=== PATIENT | female | born 1980 | race Caucasian/White ===

== ENCOUNTER → 2018-09-29 | Outpatient (CLI) | payer OTHER, SELFPAY ==
[2018-10-02 13:09] LABS: HPV Reflexed? NOT INDICATED
== END | disposition home or self-care (01) ==
PROVIDERS: Visit Provider Obstetrics & Gynecology
DX: Z12.4 Encounter for screening for malignant neoplasm of cervix (principal)
CPT/HCPCS: 88175; G0145

== ENCOUNTER → 2018-11-23 | Outpatient (CLI) | payer OTHER, SELFPAY ==
--- NOTE | 2018-11-23 11:03 | RAD_ITS ---
STUDY: X-RAY - RIGHT FOOT CLINICAL: Female, 38 years old. Bilateral heel pain TECHNIQUE: 3 view(s) of the foot. COMPARISON: None. FINDINGS: There is a plantar calcaneal spur. Normal visualized subtalar, talonavicular, calcaneocuboid, tarsal and tarsometatarsal articulations. There is mild degenerative change within the tarsometatarsal joints. Normal metatarsi. Normal metatarsophalangeal joint of the great toe. Normal tibial and fibular sesamoid bones. Normal interphalangeal joint of the great toe. Normal phalanges of the great toe. Normal second through fifth metatarsophalangeal joints. Normal interphalangeal joints and phalanges of the lesser toes. The soft tissue structures are unremarkable. RAD/Foot min 3 Views IMPRESSION: Plantar spur. No visualized evidence of an acute fracture. Electronically Signed: Ania Valadez MD at 16:46 EDT Tel , Service support ,
--- NOTE | 2018-11-23 11:06 | RAD_ITS ---
STUDY: X-RAY - LEFT FOOT CLINICAL: Female, 38 years old. Bilateral heel pain TECHNIQUE: 3 view(s) of the foot. COMPARISON: None. FINDINGS: There is a plantar spur. Normal visualized subtalar, talonavicular, calcaneocuboid, tarsal and tarsometatarsal articulations. Normal metatarsi. Normal metatarsophalangeal joint of the great toe. Normal tibial and fibular sesamoid bones. Normal interphalangeal joint of the great toe. Normal phalanges of the great toe. Normal second through fifth metatarsophalangeal joints. Normal interphalangeal joints and phalanges of the lesser toes. The soft tissue structures are unremarkable. RAD/Foot min 3 Views IMPRESSION: Plantar spur. No visualized acute fracture. Electronically Signed: Ania Valadez MD at 16:48 EDT Tel , Service support ,
== END | disposition home or self-care (01) ==
LOC: HPRAD 10:58
PROVIDERS: PCP Nurse Practitioner; Referring Provider Nurse Practitioner; Visit Provider Nurse Practitioner
DX: M79.671 Pain in right foot (principal); M79.672 Pain in left foot
CPT/HCPCS: 73630

== ENCOUNTER → 2019-10-28 | Outpatient (CLI) | payer OTHER, SELFPAY ==
--- NOTE | 2019-10-28 15:58 | BI_ITS ---
MAMMOGRAPHY - BILATERAL SCREENING REASON FOR EXAM: Female, 39 years old. Routine annual screening examination. PERTINENT HISTORY: Aunt with breast cancer. TECHNIQUE: Digital bilateral breast lisa (3D mammographic acquisition) in the CC and MLO projections. 2-D mediolateral oblique (MLO) and craniocaudad (CC) views of both breasts were obtained. CAD: Full Field Digital Mammography with Computer Added Detection was performed. COMPARISON: None. Baseline examination. FINDINGS: Breast Composition: The breasts are heterogeneously dense, which may obscure small masses. There are no dominant masses or suspicious calcifications. There is a 3.9 mm x 5 mm well-defined nodule in the upper lateral region of the left breast most likely representing a small lymph node. There is also evidence of a benign-appearing bilateral axillary lymph nodes. No other significant abnormalities are identified. BI/SCREEN MAMM (CAD) W/LISA BILAT IMPRESSION: 3.9 mm x 5 mm well-defined nodule in the upper outer quadrant of the left breast as described. Correlation with ultrasound is recommended. ASSESSMENT CATEGORY: BIRADS Category 0: Incomplete. Need additional imaging evaluation. A letter regarding these results will be sent to the patient by the facility within 30 days. Approximately 10% of breast cancers are not detected by mammography. A normal mammogram should not delay biopsy of a clinically suspicious abnormality. [id number] Electronically Signed: Shiva Pereyra, at 8:07 EDT , Service support ,
== END | disposition home or self-care (01) ==
LOC: OPBI 15:56
PROVIDERS: PCP Nurse Practitioner; Referring Provider Obstetrics & Gynecology; Visit Provider Obstetrics & Gynecology
DX: Z12.31 Encounter for screening mammogram for malignant neoplasm of breast (principal)
CPT/HCPCS: 77063; 77067

== ENCOUNTER → 2019-11-04 | Outpatient (CLI) | payer OTHER, SELFPAY ==
--- NOTE | 2019-11-04 09:33 | US_ITS ---
STUDY: ULTRASOUND BREAST - LEFT REASON FOR EXAM: Female, 39 years old. Abnormal screening mammogram. TECHNIQUE: Axial and longitudinal images of the LEFT breast were performed with a high resolution ultrasound transducer. # OF IMAGES: 35 COMPARISON: Comparison is made with prior mammogram dated October 28, 2019. FINDINGS: LEFT Breast: There is a 1.9 cm x 0.7 cm x 0 0.6 mL well-defined hypoechoic nodule with a central echogenic focus suggestive of a benign-appearing lymph node. This is at the 2:00 position of the breast at 8 cm from nipple. US/Breast Limited Unilateral IMPRESSION: The mammographic abnormality was possibly benign appearing lymph node at the 2:00 position of the breast at 8 cm from nipple. This measures 1.9 cm x 0.7 cm x 0.6 cm. ASSESSMENT CATEGORY: BIRADS Category 2: Benign. A letter regarding these results will be sent to the patient by the facility within 30 days. Electronically Signed: Shiva Pereyra, at 12:05 EDT , Service support ,
== END | disposition home or self-care (01) ==
LOC: OPUS 09:32
PROVIDERS: PCP Nurse Practitioner; Referring Provider Obstetrics & Gynecology; Visit Provider Obstetrics & Gynecology
DX: R92.8 Other abnormal and inconclusive findings on diagnostic imaging of breast (principal)
CPT/HCPCS: 76642

== ENCOUNTER → 2020-10-25 | Outpatient (CLI) | payer OTHER, SELFPAY ==
[2020-11-01 20:00] LABS: HPV Reflexed? NOT INDICATED
== END | disposition home or self-care (01) ==
LOC: LABSPEC 13:43
PROVIDERS: PCP Nurse Practitioner; Visit Provider Obstetrics & Gynecology
DX: Z12.4 Encounter for screening for malignant neoplasm of cervix (principal)
CPT/HCPCS: 88175; G0145

== ENCOUNTER → 2020-11-23 11:51 | Outpatient (CLI) | payer OTHER, SELFPAY ==
--- NOTE | 2020-11-23 11:53 | BI_ITS ---
MAMMOGRAPHY - BILATERAL SCREENING 3-D TOMOSYNTHESIS REASON FOR EXAM: Female, 40 years old. SCREENING PERTINENT HISTORY: No significant family history. TECHNIQUE: 2-D mammograms and 3-D Tomosynthesis of the breast (s) were performed. CAD was performed. COMPARISON: 10/28/2019 FINDINGS: The breast composition is of heterogeneous fibroglandular tissue No dense spiculated masses or suspicious microcalcifications are identified. No architectural distortion is identified. There is no skin thickening or nipple retraction. There are benign-appearing small lymph nodes in the axillary areas bilaterally. There has been no significant change since the prior study since 10/28/2019 BI/SCRN MAMM (CAD)W/LISA BILAT IMPRESSION: No mammographic signs of malignancy. Routine yearly mammograms recommended. ASSESSMENT CATEGORY: BIRADS Category 1: Negative. A letter regarding these results will be sent to the patient by the facility within 30 days. FOLLOW UP RECOMMENDATION: Yearly follow up mammogram recommended. (A) Approximately 10% of breast cancers are not detected by mammography. A normal mammogram should not delay biopsy of a clinically suspicious abnormality. Electronically Signed: Carlotta Funk, at 12:45 EDT Tel , Service support ,
== END ==
PROVIDERS: PCP Nurse Practitioner; Referring Provider Obstetrics & Gynecology; Visit Provider Obstetrics & Gynecology
DX: Z12.31 Encounter for screening mammogram for malignant neoplasm of breast (principal)
CPT/HCPCS: 77063; 77067

== ENCOUNTER → 2021-11-27 | Outpatient (CLI) | payer OTHER, SELFPAY ==
--- NOTE | 2021-11-27 10:11 | BI_ITS ---
MAMMOGRAPHY - BILATERAL SCREENING REASON FOR EXAM: Female, 41 years old. Routine annual screening examination. PERTINENT HISTORY: Aunt with breast cancer. TECHNIQUE: Digital bilateral breast lisa (3D mammographic acquisition) in the CC and MLO projections. 2-D mediolateral oblique (MLO) and craniocaudad (CC) views of both breasts were obtained. CAD: Full Field Digital Mammography with Computer Added Detection was performed. COMPARISON: Comparison is made with prior study dated 11/23/2020 and 10/28/2019. FINDINGS: Breast Composition: The breasts are heterogeneously dense, which may obscure small masses. There are no dominant masses or suspicious calcifications. Stable 3.9 mm x 5 mm well-defined nodule in the upper-outer aspect of the left breast most likely represents a small intramammary lymph node. Stable small benign-appearing bilateral axillary lymph nodes. No other significant abnormalities are identified. BI/SCRN MAMM (CAD)W/LISA BILAT IMPRESSION: Stable bilateral screening mammogram. Yearly follow-up mammogram recommended. (A) ASSESSMENT CATEGORY: BIRADS Category 2: Benign. A letter regarding these results will be sent to the patient by the facility within 30 days. Approximately 10% of breast cancers are not detected by mammography. A normal mammogram should not delay biopsy of a clinically suspicious abnormality. [id number] Electronically Signed: Shiva Pereyra MD at 11:04 EDT ,
== END | disposition home or self-care (01) ==
LOC: OPBI 10:09
PROVIDERS: PCP Nurse Practitioner; Visit Provider Obstetrics & Gynecology
DX: Z12.31 Encounter for screening mammogram for malignant neoplasm of breast (principal)
CPT/HCPCS: 77063; 77067

== ENCOUNTER 2021-11-29 20:51 | Emergency (ER) | payer OTHER, SELFPAY ==
[2021-11-29 20:52] VITALS: BP 138/89; PULSE 73; RESP 16; TEMP 36.6; O2SAT 100; BMI 29.7
--- NOTE | 2021-11-29 21:33 | RAD_ITS ---
STUDY: RIGHT TIBIA AND FIBULA X-RAY SERIES OF 2206 HOURS ON 11/29/2021 REASON FOR EXAM: 41-year-old female with pain in the right tibia and fibular region. TECHNIQUE: 3 view(s) of the tibia and fibula were obtained. COMPARISON: None. FINDINGS: There is no evidence of fractures or dislocations of the adjacent joints. There is no evidence of arthritic or degenerative changes of the adjacent joints. No osseous lytic, sclerotic, or mass lesions are evident. The surrounding soft tissues are normal. RAD/Tibia & Fibula 2 Views IMPRESSION: 1. Normal examination of the right tibia and fibula. 2. No fractures or dislocations. 3. No osseous lytic, sclerotic or mass lesions. 4. Normal-appearing adjacent right knee and right ankle joints. 5. Normal surrounding soft tissues. Electronically Signed: Collin Guerra MD at 22:29 EDT ,
--- NOTE | 2021-11-29 21:33 | EDS_ITS ---
HPI History of Present Illness Chief Complaint: Lower Extremity Injury Narrative Narrative: 41-year-old female presenting with pain in the right leg. She states he was kicked by her cow just below the level of the knee on the lateral aspect of the right leg. Patient states he is unable to ambulate secondary pain. She did not take anything for pain prior to arrival. Denies numbness or tingling. She is a superficial abrasion overlying the right lateral leg. She states that the pain radiates up into her knee. PFSH PFSH Home Medications norelgestromin 150 mcg-e.estradiol 35 mcg/24 hr weekly transderm patch (Xulane) 1 patch transdermal UD 11/29/21 [History Last Taken Unknown] Allergy/AdvReac Type Severity Reaction Status Date / Time No Known Allergies Allergy Verified 11/29/21 20:53 Social History Smoking Status: Never smoker ROS ROS ED Constitutional Constitutional ED: Denies chills or fever(s) Eyes Eyes: Denies change in vision or diplopia ENT ENT ED: Denies rhinorrhea or sore throat Cardiovascular Cardiovascular: Denies chest pain or palpitations Respiratory/Chest Respiratory/Chest: Denies cough or dyspnea Gastrointestinal Gastrointestinal: Denies abdominal pain or constipation Genitourinary Genitourinary ED: Denies dysuria Musculoskeletal Musculoskeletal: Reports other Details: Right leg pain ; Denies arthralgias or back pain Integumentary Reports Abrasions; Denies abscess Neurologic Neurologic: Denies headache(s) EXAM Physical Exam Const Vital Signs: 11/29/21 20:52 Temperature 97.8 F Temperature Source Temporal Pulse Rate 73 Respiratory Rate 16 Blood Pressure 138/89 H Blood Pressure Mean 105 Pulse Ox 100 Oxygen Delivery Method Room Air Positive well nourished General Appearance ED: NAD HEENT Reports moist mucous membranes normocephalic and atraumatic Resp normal respiratory effort Cardio regular rate and regular rhythm Extremity Extremity Narrative: Tenderness to palpation overlying the area of the fibular head. There is a superficial abrasion overlying this. compartments of the calf are soft. Right knee extensor mechanism intact. No knee effusion or ligamentous laxity. Sensation intact below the level of the injury. No obvious deformity of the leg. General Extremety ED: Yes weight-bearing difficulty General Extremity: weight-bearing difficulty Neuro oriented x3 and CN's II-XII intact bilaterally Sensorium / Orientation: alert Psych mental status grossly normal MDM MDM MDM Narrative Medical decision making narrative: Patient declines analgesia. Patient does have an ice pack. Right knee and right tib-fib ordered and on my interpretation there are no acute fractures. Patient reexamined and her compartments are still soft. Pedal pulses 2+. Skin pink and warm. Patient counseled to continue monitoring her lower extremity. If it becomes tense or she has color change in her legs or loses pulses to return to the ER. Patient to ice and elevate her leg. She does not want anything for pain so I counseled her to use Tylenol and ibuprofen in alternating doses. Patient given crutches prior to discharge. Impression: 1. lower extremity contusion Radiography Diagnostic Testing: Clinical Impression(s) from Imaging Studies Tibia/Fibula X-Ray 11/29/21 21:33 IMPRESSION: 1. Normal examination of the right tibia and fibula. 2. No fractures or dislocations. 3. No osseous lytic, sclerotic or mass lesions. 4. Normal-appearing adjacent right knee and right ankle joints. 5. Normal surrounding soft tissues. Electronically Signed: Collin Guerra MD at 22:29 EDT Reading Location ID and State: [email or web address] / [place] Tel , Service support , Knee X-Ray 11/29/21 21:50 IMPRESSION: 1. Normal examination of the right knee. 2. No fractures or dislocations. 3. Balanced right knee joint. 4. No arthritic or degenerative changes. Electronically Signed: Collin Guerra MD at 22:26 EDT , Discharge Plan Triage Chief Complaint: Lower Extremity Injury ED Provider: Aleksey Amor Dx/Rx/DC Orders Instructions: ED Contusion, Lower Extremity Prescriptions: No Action Xulane 150-35 mcg/24 hr patch weekly 1 patch transdermal UD Label Comments: PLACE PATCH EACH WEEK FOR 3 WKS AND THEN REMOVE FOR 1 WK AND REPEAT Primary Care Provider: Claire Hernandez NP Referrals: Claire Hernandez BUILDING PERFORMANCE CONSULTANT, BUILDING PERFORMANCE CONSULTANT-C [Primary Care Provider] - Disposition Disposition: Home, Self Care
--- NOTE | 2021-11-29 21:50 | RAD_ITS ---
STUDY: RIGHT KNEE X-RAY SERIES OF 2156 HOURS ON 11/29/2021 REASON FOR EXAM: 41-year-old female with right knee pain. TECHNIQUE: 4 view(s) of the knee. COMPARISON: None. FINDINGS: There are no fractures or dislocations. The knee joint is balance. There are no arthritic or degenerative changes. The patella has normal appearance. The surrounding soft tissues are without abnormality. RAD/Knee 4 or More Views IMPRESSION: 1. Normal examination of the right knee. 2. No fractures or dislocations. 3. Balanced right knee joint. 4. No arthritic or degenerative changes. Electronically Signed: Collin Guerra MD at 22:26 EDT ,
== END 2021-11-29 23:04 | disposition home or self-care (01) ==
PROVIDERS: Emergency Provider Student in an Organized Health Care Education/Training Program; PCP Nurse Practitioner; Visit Provider Student in an Organized Health Care Education/Training Program
DX: S80.11XA Contusion of right lower leg, initial encounter (principal); W55.22XA Struck by cow, initial encounter
CPT/HCPCS: 73564; 73590; 99283

== ENCOUNTER → 2022-11-29 | Outpatient (CLI) | payer OTHER, SELFPAY ==
--- NOTE | 2022-11-29 07:12 | BI_ITS ---
MAMMOGRAPHY - BILATERAL SCREENING REASON FOR EXAM: Female, 42 years old. Routine annual screening examination. PERTINENT HISTORY: Aunt with breast cancer. TECHNIQUE: Digital bilateral breast lisa (3D mammographic acquisition) in the CC and MLO projections. 2-D mediolateral oblique (MLO) and craniocaudad (CC) views of both breasts were obtained. CAD: Full Field Digital Mammography with Computer Added Detection was performed. COMPARISON: Comparison is made with prior study November 27, 2021 and November 23, 2020. FINDINGS: Breast Composition: The breasts are heterogeneously dense, which may obscure small masses. There are no dominant masses or suspicious calcifications. Stable 3.9 mm x 5 mm well-defined nodule in the upper outer aspect of the left breast. Stable small benign-appearing bilateral axillary lymph nodes. No other significant abnormalities are identified. There has been no significant change since the prior study. BI/SCRN MAMM (CAD)W/LISA BILAT IMPRESSION: Stable bilateral screening mammogram. Yearly follow-up mammogram recommended. (A) ASSESSMENT CATEGORY: BIRADS Category 2: Benign. A letter regarding these results will be sent to the patient by the facility within 30 days. Approximately 10% of breast cancers are not detected by mammography. A normal mammogram should not delay biopsy of a clinically suspicious abnormality. [id number] Electronically Signed: Shiva Pereyra MD at 8:39 EDT ,
== END | disposition home or self-care (01) ==
PROVIDERS: PCP Nurse Practitioner Family; Referring Provider Nurse Practitioner Women's Health; Visit Provider Nurse Practitioner Women's Health
DX: Z12.31 Encounter for screening mammogram for malignant neoplasm of breast (principal)
CPT/HCPCS: 77063; 77067

== ENCOUNTER → 2023-07-30 | Outpatient (CLI) | payer OTHER, SELFPAY ==
--- NOTE | 2023-07-30 19:02 | CT_ITS ---
STUDY: CT ABDOMEN AND PELVIS WITH CONTRAST REASON FOR EXAM: Female, 42 years old. Abdominal pain RADIATION DOSAGE (If Supplied By Facility): CTDIvol = ( 12.99 ) mGy, DLP = ( 1022.34 ) mGycm TECHNIQUE: Transaxial images were obtained from the dome of the diaphragm to the symphysis pubis without oral contrast. Oral and amp; IV Read i-CAT and amp; 75mL Isovue-300 was administered. Sagittal and coronal images were reconstructed. Individualized dose optimization techniques were used for this CT. COMPARISON: None. FINDINGS: The visualized lung bases are unremarkable. The visualized portions of the heart are within normal limits. Normal liver. Normal gallbladder and extrahepatic biliary system. Normal spleen. Normal pancreas. Normal bilateral adrenal glands. Normal right kidney. Normal left kidney. Normal visualized stomach. Normal small intestine. Normal colon. The appendix is not visualized. Normal abdominal aorta. Normal inferior vena cava. Normal retroperitoneum. Normal urinary bladder. Fatty umbilical hernia. Normal osseous structures. CT/Abdomen/Pelvis WITH Contrast IMPRESSION: Fatty umbilical hernia. Electronically Signed: Maged Hardin DO at 20:26 [facility] Reading Location ID and State: [facility] / [place] Tel [phone], Service support ,
== END | disposition home or self-care (01) ==
LOC: CT 19:02
PROVIDERS: PCP Nurse Practitioner Family; Referring Provider Nurse Practitioner Family; Visit Provider Nurse Practitioner Family
DX: R10.9 Unspecified abdominal pain (principal)
CPT/HCPCS: 74177; Q9967

== ENCOUNTER → 2023-08-22 | Outpatient (CLI) | payer OTHER, SELFPAY | END | disposition home or self-care (01) | LOC: LABSPEC 10:15 | PROVIDERS: PCP Nurse Practitioner Family; Referring Provider Surgery; Visit Provider Surgery | DX: Z01.818 Encounter for other preprocedural examination (principal); K42.9 Umbilical hernia without obstruction or gangrene | CPT/HCPCS: 87077; 87081 ==

== ENCOUNTER 2023-10-02 09:57 | Day surgery (SDC) | payer OTHER, SELFPAY ==
[2023-10-02] VITALS (7 sets, daily range): BP systolic 101–139; BP diastolic 58–86; PULSE 62–83; RESP 16–18; TEMP 36.2–37.2; O2SAT 94–100; BMI 31.1
[2023-10-02 10:20] LABS: Internal QC Validated? YES +Cl - CLEAR BKGD; Pregnancy, Urine Negative Negative
[2023-10-02] MEDS: Lactated Ringers 1,000 ML 15 ML IV ×2 (10:35→16:48)
--- NOTE | 2023-10-02 11:25 | PCM.HP.BLA ---
History and Physical Date of Admission: 10/02/23 Date of Service: 08/22/23 MR#: [id number] Acct: [id number] Name: ANAYELI ESCOBEDO Rep #: [id number] : 1980 Provider: Dr. 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: No Is patient in pain?: No Allergies No Known Allergies Allergy (Verified 08/22/23 08:10) Medications norelgestromin 150 mcg-e.estradiol 35 mcg/24 hr weekly transderm patch (Xulane) 1 patch transdermal UD 11/29/21 [History Confirmed 08/22/23] PFSH Surgical History (Updated 08/22/23 @ 08:08 by Nini Fu LPN) S/P appendectomy S/P myringotomy with insertion of tube S/P tonsillectomy Family History (Updated 08/22/23 @ 08:09 by Nini Fu LPN) Grandmother Diabetes Social History (Updated 08/22/23 @ 08:09 by Nini Fu LPN) Smoking Status: Never smoker alcohol intake: never substance use type: does not use HPI HPI HPI: Patient is a 42-year-old female who presents for a newly diagnosed umbilical hernia. Patient is referred from Mrs. Gema Elizalde NP and Mrs. Haylee Combs NP. This finding was first noticed by patient approximately 6 to 7 months ago. 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 She has noticed both some growth of this hernia as well as some pain off and on. She finds that it becomes painful and firm to the touch but has never changed colors. She also confirms that her bowels have been unaffected. She suggest that a twin several years ago is likely to blame for the attenuated condition of her abdominal wall. Patient has no personal history of smoking. Patient has no personal history of recurrent cutaneous infections including staph. Pertinent surgical history includes: Remote lap appendectomy ROS General General: No weight change, appetite, fatigue, colon cancer, breast cancer or weakness HEENT HEENT: No difficulty swallowing, eye injury, eye surgery, swollen glands or hoarseness Endo Endocrine: No thyroid disease, diabetes mellitus, thyroid cancer, Hair loss, heat intolerance or cold intolerance Skin Skin: No rash or changing moles Musc Musculoskeletal: No back problems, arthritis, rheumatoid arthritis, gout or joint pain Cardio Cardiovascular: No murmur, pacemaker, heart disease, atrial fibrillation, high blood pressure, heart attack, heart stent, palpitations, shortness of breat with exertion or chest pain Psych Psychiatric: No depression, anxiety or hearing voices Resp Respiratory: No shortness of breath, No sleep apnea, No cough, No COPD, No asthma, No emphysema and No wheezing Gastro Gastrointestinal: No abdominal pain, No nausea or vomiting, No diarrhea, No constipation, No blood in stool, No acid reflux, No hemorrhoids, No ulcers, No gallbladder problem and No black,tarry stools Romulo Hematologic: No blood thinners, No blood disorders, No bleeding, No anemia and No blood clots Neuro Neurologic: No numbness, No tingling and No weakness Exam Const General: cooperative Nutritional Appearance: obese Orientation: alert, awake and oriented x3 Other: Pleasant Resp Effort & Inspection: normal respiratory effort GI Other: Obese, abdominal striae present with significant laxity of the abdominal wall, 2.5 cm umbilical hernia defect that is freely reducible to the peritoneum. Is nontender to palpation. Does not appear to be any hernia contents at this time. Patient denies any other tenderness with palpation of the 4 abdominal quadrants. Assessment and Plan Assessment and Plan (1) Umbilical hernia: Status: Acute Comment: Patient is a 42-year-old female, otherwise healthy, who presents with newly diagnosed umbilical hernia that she has appreciated both growing in size and discomfort. It is freely reducible on exam. I shared patient's CT imaging with her and find this to measure 2.5 cm at the hernia neck, however, the surrounding tissue is quite attenuated. Based on patient's active lifestyle and the quality of the tissue I find here I recommend repair with significant mesh underlay. To achieve this objective I recommend robot-assisted umbilical hernia repair with mesh placement. Procedure was described in detail and patient states that this is agreeable to her. I have informed her that we would be looking for activity restriction of no lifting greater than 10 pounds for 5 weeks postoperatively. She states that she has a commitment at the end of August but would like to target the early part of September for surgery. Today we will plan to obtain a screening for MRSA with a swab of her naris. Plan: ? MRSA swab ? Tentatively plan for robot-assisted umbilical hernia repair with mesh early September. Procedure to be done with outpatient disposition. Orders: I have examined the patient and the H&P has been reviewed. There are no clinical changes since date of exam. She also denies any questions, however, given the duration since her last visit I took the opportunity to perform a high level review of both the procedure and the post procedure expectations?including a review of her activity restrictions postop. She and her confirmed understanding. Will now proceed to the operating room for robot-assisted umbilical hernia repair with mesh.
[2023-10-02] MEDS: Cefazolin 2 GM in 0.9% Normal Saline (100mL Bag) 100 ML IV (11:42)
[2023-10-02] MEDS: BUPIVACAINE LIPOSOME/PF 20 ML VIAL OPERA.SITE (14:30)
[2023-10-02] MEDS: 0.9% Normal Saline (Pres. free 10 ML Vial (14:31)
[2023-10-02] MEDS: Bupivacaine 0.25% 30 ML Vial (14:31)
--- NOTE | 2023-10-02 14:31 | PCM.OPRPT ---
Report of Operation Date of Procedure: 10/02/23 Pre-Operative Diagnosis: Umbilical hernia Post-Operative Diagnosis: Same Surgery/Procedure Performed:: Robot-assisted transabdominal preperitoneal repair of umbilical hernia with mesh Description of Surgical Findings:: ? 2.5 cm fascial defect with attenuated fascia and evidence of diastases recti Surgeon: Joaquin Rowe [employer] spanish teacher: Farhat Fuentes Type of Anesthesia: General/Supplemental Anesthesiologist: Néstor Garrett Special Medications: 74 mL of combination solution Exparel, 0.25% Marcaine, and injectable saline Specimen's removed: None Drains: None Estimated Blood Loss (mL): 8 Description of Procedure: After appropriate identification in the preoperative holding area, the patient was brought to the operating room suite where she was positioned supine the operating table. Preoperative antibiotics were administered. Patient was then induced with a general anesthetic. Patient's abdomen was prepped and draped in the usual sterile fashion. A formal timeout followed to confirm patient and procedure. Procedure was begun with a Veress entry at Frank's point. Once the set point pressure was reached, this Veress needle was exchanged for an optical trocar and an optical entry was made in this location. Laparoscopic investigation revealed no inadvertent injury to the viscera below. 2 additional 8 mm robotic trochars were placed along the abdominal wall laterally taking care to avoid the bony prominences of the costal margin and the ASIS. A transversus abdominis plane block was created with 70mL of a mixture of Exparel, Marcaine, and injectable saline under laparoscopic vision as these ports were placed. The robot was then brought in and docked in standard fashion. Robotically a peritoneal flap was raised approximately 2 cm medial from my trocars and carried this away towards the contralateral abdominal wall. Great care was taken to lower the peritoneum off of the posterior rectus sheath and avoid any rents in the peritoneal flap. Perforating vessels were sealed with bipolar energy to maintain hemostasis as this flap dissection proceeded. As this dissection was carried to the contralateral side, the hernia was addressed directly by opening the scar tissue about the hernia sac and carefully applying manual traction downward with a sweeping motion until the hernia was fully reduced. The flap was then further dissected laterally until it appeared we had adequate width. A ruler was introduced to the peritoneal cavity and the hernia defect was measured at 2.5 cm in diameter. Adequate overlap was confirmed with intraoperative measurements as well. Then the hernia defect was closed with a #1 stratafix suture by running the fascial defect closed and then running the suture back upon itself. Next a ProGrip mesh cut to dimensions of 8 cm x 10 cm long was introduced into the peritoneum. This mesh was centered on the fascial closure and pressed into place. The center part of the mesh was tacked to the underside of the hernia closure with a single interrupted 3-0 Vicryl suture. Lastly the peritoneum was closed with 3-0 Vicryl V-Loc suture in a bidirectional fashion. The robot was then undocked and the trocars were removed. Additional local anesthetic was instilled and the port sites were closed with interrupted 4-0 Monocryl in subcuticular fashion. Steri-Strips and OpSite dressings were applied. Patient was transferred to PACU for ongoing care. Grafts/Implants Used: [employer] [facility], Lot [id number], expiration 06/01/2026 Complications None Admit VTE Documentation VTE Mechan Device Prophylaxis: SCD's
--- NOTE | 2023-10-02 14:35 | EX.PCM.DISCH ---
Discharge Instructions Diet Discharge Diet: No restrictions Activity Discharge Activity: May Not Drive (While taking narcotic pain medication) and May Shower May shower in (days): 2 Ice area for (Minutes): 20 Lifting Restrictions: No lifting greater than 10 pounds for the next 5 weeks Dressing / Incision Call your doctor if your incision/area has: Continuous Slow Oozing, Increased Pain/ Swelling, Increased Redness, Foul Smelling Discharge and Swelling at the incision site Call your doctor if you observe: Fever of 101 or Higher, Inability to urinate and Inability to have a bowel movement Change Dressing in: 2 days (Please leave Steri-Strips intact until they fall off spontaneously or are taken off at your follow-up visit) Remove Dressing in: 2 days Cleanse incision/area with: Soap & Water and Keep Dressing Clean & Dry Follow Up Care Please Follow Up With: Joaquin Rowe MD When: 6-10days postop Test Results: Test results from this visit will be discussed in further detail at your follow-up appointment, if applicable. Discharge Plan Admission Primary Reason for Your Visit: Umbilical hernia repair Attending Provider: Joaquin Rowe Primary Care Provider: Gema Elizalde Discharge Orders/Prescriptions Prescriptions: New oxycodone 5 mg tablet 5 mg PO Q6H PRN (Reason: pain) 3 Days Qty: 10 0RF Continued norelgestromin-ethin.estradiol [Xulane] 150-35 mcg/24 hr patch weekly 1 patch transdermal EVANS Patient Comments: PLACE PATCH EACH WEEK FOR 3 WKS AND THEN REMOVE FOR 1 WK AND REPEAT multivit with min-folic acid [Womens Daily Gummies] 200 mcg tablet,chewable 1 tab PO DAILY Referrals / Follow Up: Gema Elizalde, [employer] [Primary Care Provider] - Disposition Disposition (needs filled in before D/C Order can be placed): Home, Self Care
[2023-10-02] MEDS: Acetaminophen 325 MG Tablet 650 MG PO (16:50)
--- NOTE | 2023-10-02 18:53 | SUR.PHASEII ---
WALKED, VOIDED, GOT DRESSED WITHOUT PROMPTING. DIZZINESS TOLERABLE WITH EDUCATION & COACHING. PATIENT STATES READY TO GO. DR XIONG UPDATED VIA BACKLINE.
== END 2023-10-02 18:56 | disposition home or self-care (01) ==
LOC: SDC 09:57 → AC 09:58
PROVIDERS: Anesthesiology; PCP Nurse Practitioner Family; Referring Provider Surgery; Visit Provider Surgery
PROC: (CPT 49591; principal; 2023-10-02 11:10)
DX: K42.9 Umbilical hernia without obstruction or gangrene (principal); Z90.49 Acquired absence of other specified parts of digestive tract
CPT/HCPCS: 49591; 00840; S2900; 81025; J7120; J2405; J3490

== ENCOUNTER → 2023-11-26 | Outpatient (CLI) | payer OTHER, SELFPAY ==
[2023-12-01 15:08] LABS: HPV APTIMA, High Risk Negative (Negative)
== END | disposition home or self-care (01) ==
LOC: LABSPEC 15:58
PROVIDERS: PCP Nurse Practitioner Family; Visit Provider Nurse Practitioner Family
DX: Z12.4 Encounter for screening for malignant neoplasm of cervix (principal)
CPT/HCPCS: 87624; 88175; G0145

== ENCOUNTER → 2023-12-12 | Outpatient (CLI) | payer OTHER, SELFPAY ==
--- NOTE | 2023-12-12 14:55 | BI_ITS ---
MAMMOGRAPHY - BILATERAL SCREENING REASON FOR EXAM: Female, 43 years old. Routine annual screening examination. PERTINENT HISTORY: Aunt with breast cancer. TECHNIQUE: Digital bilateral breast lisa (3D mammographic acquisition) in the CC and MLO projections. 2-D mediolateral oblique (MLO) and craniocaudad (CC) views of both breasts were obtained. CAD: Full Field Digital Mammography with Computer Added Detection was performed. COMPARISON: Comparison is made with prior study dated November 29, 2022 and November 27, 2021. FINDINGS: Breast Composition: The breasts are heterogeneously dense, which may obscure small masses. There are no dominant masses or suspicious calcifications. Stable 3.9 mm x 5 mm well-defined nodule in the upper-outer aspect of the left breast stable benign appearing bilateral axillary lymph nodes. No other significant abnormalities are identified. There has been no significant change since the prior study. BI/SCRN MAMM (CAD)W/LISA BILAT IMPRESSION: Stable bilateral screening mammogram. Yearly follow-up mammogram recommended. (A) ASSESSMENT CATEGORY: BIRADS Category 2: Benign. A letter regarding these results will be sent to the patient by the facility within 30 days. Approximately 10% of breast cancers are not detected by mammography. A normal mammogram should not delay biopsy of a clinically suspicious abnormality. [id number] Electronically Signed: Shiva Pereyra MD at 8:36 EDT ,
== END | disposition home or self-care (01) ==
LOC: OPBI 14:54
PROVIDERS: PCP Nurse Practitioner Family; Referring Provider Nurse Practitioner Family; Visit Provider Nurse Practitioner Family
DX: Z12.31 Encounter for screening mammogram for malignant neoplasm of breast (principal)
CPT/HCPCS: 77063; 77067

== ENCOUNTER → 2024-12-13 | Outpatient (CLI) | payer OTHER, SELFPAY ==
--- NOTE | 2024-12-13 11:59 | BI_ITS ---
EXAM: SCRN MAMM (CAD)W/LISA BILAT DATE: 12/13/2024 CLINICAL HISTORY: F, Age 44 y/o , SCREENING MAMMOGRAM FOR BREAST CANCER Maternal aunt with breast cancer. TECHNIQUE: SCRN MAMM (CAD)W/LISA BILAT COMPARISON: Prior exam(s) dated December 12, 2023.. FINDINGS: TISSUE DENSITY: The breasts are heterogeneously dense, which may obscure small masses. Bilateral Breast Mammographic Findings: No significant masses, calcifications or other abnormalities are identified. Stable 3.5 mm x 5 mm well-defined nodule in the upper lateral aspect of the left breast suggestive of an intramammary lymph node. Stable bilateral axillary lymph nodes. No suspicious masses, areas of developing architectural distortion, or suspicious calcifications. There has been no significant interval change. BI/SCRN MAMM (CAD)W/LISA BILAT IMPRESSION: Stable examination. OVERALL FINAL ASSESSMENT BI-RADS 2: BENIGN RECOMMENDATION: Routine annual follow-up in 1 Year A letter with findings and recommendations will be mailed to the patient. Reading Location: [place] [id number]
--- OUTSIDE RECORDS SUMMARY | 2024-12-13 21:59 | XMS RPT_ITS | CCD ---
Author Organization [facility] CliniSynv Care Team Providers Care Teacher Tutor Name Role Phone Claire Hernandez E Unavailable Genna Leblanc Unavailable Unavailable Jolie oDwns Unavailable Unavailable Unavailable Unavailable Leigh Samuel Unavailable Claire Hernandez Unavailable Dr. Leigh Samuel Unavailable Genna Leblanc Unavailable Unavailable Hitesh Moya LPN Unavailable Unavailable Unavailable Unavailable Garret LIND, Haylee Unavailable Garret LIND Haylee Unavailable García Winters Unavailable David Claire Unavailable Lisandra Amin MA Unavailable Unavailable Garret DIOGO Haylee Attending Unavailable Garret NEWS AGENT, Haylee Referring Unavailable Garret DIOGO, Haylee Consulting Unavailable Tonio, COPIER OPERATOR-C Gema Primary Care Provider Tonio, COPIER OPERATOR-C Gema Referring Provider Dr. Joaquin Rowe Attending Provider Dr. Joaquin Rowe Referring Provider [phone] Dr. Joaquin Rowe Other Provider [phone] Tonio COPIER OPERATOR-C, Gema Primary Care Provider Tonio COPIER OPERATOR-C, Gema Referring Provider [phone] Hunter COPIER OPERATOR-CIndy Attending Provider [phone] Tonio, Gema Primary Care Unavailable Indy Harrison Attending Unavailable Tonio, Gema Referring Unavailable Indy Harrison Referring Unavailable Indy Harrison Attending Unavailable Tonio, Gema Primary Care Unavailable Medications Current Medications Medication Drug Class(es) Dates Sig (Normalized) Sig (Original) 168 hr ethinyl estradiol 0.71378 mg/hr / norelgestromin 0.77800 mg/hr transdermal system (12 sources) Progestin, Estrogen Start: 11-29-2021 Norelgestromin-Et hin.Estradiol (Xulane) 150-35 mcg/24 hr patch weekly Active 1 PATCH TD DIRECTED November 29, 2021 12:00am apply 1 dose transdermal route e very week Xulane 150-35 MCG/24HR Transdermal Patch Weekly 1 patch transdermally weekly (150-35 MCG/24HR) Active Multivit With Min-Folic Acid (Womens Daily Gummies) 200 mcg tablet,chewable (2 sources) Start: 09-18-2023 take 1 tablet by mouth once daily Multivit With Min-Folic Acid (Womens Daily Gummies) 200 mcg tablet,chewable Active 1 {tbl} PO DAILY September 18, 2023 12:00am Start: 09-18-2023 take 1 tablet by carole th once daily Multivit With Min-Folic Acid (Womens Daily Gummies) 200 mcg tablet,chewable Active 1 TABLET PO DAILY September 18, 2023 12:00am Norelgestromin-Ethin.Estradi ol (Xulane) 150-35 mcg/24 hr patch weekly (7 sources) Start: 12-08-2024 Norelgestromin-Ethin.Estradi ol (Xulane) 150-35 mcg/24 hr patch weekly Active 1 NMA TD EVANS 9 3 December 08, 2024 10:35am Start: 07-19-2024 End: 12-08-2024 Norelgestromin-Ethin.Estradi ol (Xulane) 150-35 mcg/24 hr patch weekly Discontinued 1 NMA TD EVANS 9 3 July 19, 2024 3:03pm December 08, 2024 10:35am Start: 04-12-2024 End: 07-19-2024 Norelgestromin-Ethin.Estradi ol (Xulane) 150-35 mcg/24 hr patch weekly Discontinued 1 NMA TD EVANS 9 3 April 12, 2024 12:24pm July 19, 2024 3:04pm Start: 01-15-2024 End: 04-12-2024 Norelgestromin-Ethin.Estradi ol (Xulane) 150-35 mcg/24 hr patch weekly Discontinued 1 NMA TD EVANS 3 4 January 15, 2024 8:27am April 12, 2024 12:25pm Start: 11-26-2023 End: 01-15-2024 Norelgestromin-Ethin.Estradi ol (Xulane) 150-35 mcg/24 hr patch weekly Discontinued 1 NMA TD EVANS 3 0 November 26, 2023 3:15pm January 15, 2024 8:28am Start: 11-29-2021 End: 11-26-2023 Norelgestromin-Ethin.Estradi ol (Xulane) 150-35 mcg/24 hr patch weekly Discontinued 1 NMA TD EVANS November 29, 2021 12:00am November 26, 2023 3:16pm Start: 11-29-2021 Norelgestromin -Ethin.Estradiol (Xulane) 150-35 mcg/24 hr patch weekly Active 1 PATCH TD EVANS November 29, 2021 12:00am Completed/Discontinued Medications Medication Drug Class(es) Dates Sig (Normalized) Sig (Original) amoxicillin 875 mg / clavulanate 125 mg oral tablet (20 sources) Penicillin-class Antibacterial Start: 11-19-2018 End: 12-03-2018 take 1 tablet by mouth twice daily at mealtime Amoxicillin-Pot Clavulanate 875-125 MG Oral Tablet 1 (one) Tablet PO BID for 14 days Quantity: 28 {Tablet} Refills: 0 Ordered: 19-Nov-2018 Genna Leblanc Start : 19-Nov-2018 End : 03-Dec-2018 Inactive Comments: Take with food Start: 07-30-2010 End: 01-18-2011 take 1 tablet by mouth twice daily AUGMENTIN, 875-125MG (Oral Tablet) 1 Tablet Twice daily for 0 days Quantity: 20 {Tablet} Refills: 0 Ordered: 18-Jan-2011 LAURA Montgomery LPN Start : 30-Jul-2010 End : 18-Jan-2011 Inactive Comment on above: Take with food azithromycin 250 mg oral tablet (10 sources) Macrolide Antimicrobial Start: 015 End: 019 Zithromax Z-Jonah 250 MG Oral Tablet 1 (one) Tablet TAD for 0 days Quantity: 1 {Package} Refills: 0 Ordered: 19-Nov-2018 Genna Leblanc Start : 07-Jun-2014 End : 19-Nov-2018 Inactive chlorhexidine gluconate 40 mg/ml medicated liquid soap (3 sources) Start: End: Chlorhexidine Gluconate (Hibiclens) 4 % liquid Discontinued 1 NMA TOPICAL ONCE [phone] [id number] August 25, 2023 12:00am August 31, 2023 12:00am September 01, 2023 12:06am pre-op Shower with daily for one week MICROGESTIN FE 1.5/30, 1.5-30MG-MCG (Oral Tablet) (10 sources) Estrogen Start: End: MICROGESTIN FE 1.5/30, 1.5-30MG-MCG (Oral Tablet) 1 tab Tablet qd,uad for 0 days Quantity: 1 {Tablet} Refills: 11 Ordered: 07-Jun-2014 Start : 26-Mar-2006 End : 07-Jun-2014 Discontinued Comments: DISPENSE 1 PACK Comment on above: DISPENSE 1 PACK ferrous sulfate 325 mg oral tablet (6 sources) Start: End: take 1 tablet by mouth twice daily Ferrous Sulfate (Iron Supplement) 325 MG tablet Discontinued 325 mg PO TWICE A DAY June 15, 2014 1:00am July 29, 2014 9:04am levocetirizine dihydrochloride 5 mg oral tablet (10 sources) Histamine-1 Receptor Antagonist Start: End: take 1 tablet by mouth once daily XYZAL, 5MG (Oral Tablet) 1 (one) Tablet Daily for 0 days Refills: 0 Ordered: 18-Jan-2011 LAURA Montgomery LPN Start : 09-Mar-2009 End : 18-Jan-2011 Inactive mometasone furoate 0.05 mg/actuat metered dose nasal spray (10 sources) Corticosteroid Start: End: NASONEX, 50MCG/ACT (Nasal Suspension) 2 (two) Suspension Daily for 0 days Refills: 0 Ordered: 18-Jan-2011 LAURA Montgomery LPN Start : 09-Mar-2009 End : 18-Jan-2011 Inactive Mupirocin (3 sources) RNA Synthetase Inhibitor Antibacterial Start: End: Mupirocin 2 % ointment Discontinued 1 NMA TOPICAL TWICE A DAY August 25, 2023 12:00am September 18, 2023 1:03pm Pre-op apply to a qtip into bilateral nares BID for one week Start: 08-25-2023 End: 09-18-2023 Mupirocin Discontinued 1 KINGA LIC TOPICAL TWICE A DAY August 25, 2023 12:00am September 18, 2023 1:03pm apply to a qtip into bilateral nares BID for one week Start: 08-25-2023 Mupirocin Acti ve 1 APPLIC TOPICAL TWICE A DAY August 25, 2023 12:00am apply to a qtip into bilateral nares BID for one week oxyCODONE hydrochloride 5 mg oral tablet (2 sources) Opioid Agonist Start: 10-02-2023 End: 10-14-2023 take 1 tablet by mouth every six hours as needed for pain Oxycodone 5 mg tablet Discontinued 5 mg PO EVERY 6 HOURS as needed for pain 10 3 0 October 02, 2023 October 14, 2023 8:12am Umbilical hernia Umbilical hernia without obstruction or gangrene predniSONE 10 mg oral tablet (10 sources) Start: 01-26-2007 End: 02-18-2007 take 3 tablets by mouth once daily PREDNISONE, 10MG (Oral Tablet) 3 (three) Tablet Daily for 7 days Quantity: 21 {Tablet} Refills: 0 Ordered: 26-Jan-2007 DAVE NUÑEZ CNP Start : 26-Jan-2007 End : 18-Feb-2007 Inactive pseudoephedrine hydrochloride 30 mg oral tablet (10 sources) alpha-Adrenerg ic Agonist Start: 06-07-2014 End: 11-19-2018 take 1 tablet by mouth every eight hours as needed Sudafed 30 MG Oral Tablet 1 (one) Tablet q8hrs prn for 0 days Quantity: 30 {Tablet} Refills: 0 Ordered: 19-Nov-2018 Genna Leblanc Start : 07-Jun-2014 End : 19-Nov-2018 Inactive NEGATED: Highlighted row has not occurred!drug or medication (6 sources) No Known Historical Medications NEGATED: Highlighted row has not occurred!No Known Historical Medications (1 source) No Known Historical Medications Problems Active Problems Problem Classification Problem Date Documented Date Episodic/Chronic Abdominal hernia (5 sources) Umbilical hernia; Translations: [Umbilical hernia without obstruction or gangrene] 08-22-2023 Episodic Comment on above: Patient is a 42-year -old female, otherwise healthy, who presents with newly diagnosed umbilical hernia that she has appreciated both growing in size and discomfort. It is freely reducible on exam. I shared patient's CT imaging with her and find this to measure 2.5 cm at the hernia neck, however, the surrounding tissue is quite attenuated. Based on patient's active lifestyle and the quality of the tissue I find here I recommend repair with significant mesh underlay. To achieve this objective I recommend robot-assisted umbilical hernia repair with mesh placement. Procedure was described in detail and patient states that this is agreeable to her. I have informed her that we would be looking for activity restriction of no lifting greater than 10 pounds for 5 weeks postoperatively. She states that she has a commitment at the end of August but would like to target the early part of September for surgery. Today we will plan to obtain a screening for MRSA with a swab of her naris. Allergic reactions (13 sources) Contact dermatitis due to plants, except food; Translations: [Disorders of skin induced by physical agents] Resolved: 10-20-2008 10-20-2008 Episodic Contraceptive and procreative management (20 sources) Patient encounter status; Translations: [General counseling on prescription of oral contraceptives] Resolved: 11-30-2008 08-04-2019 Episodic Deficiency and other anemia (5 sources) Deficiency and other anemia Disorders of lipid metabolism (6 sources) Hyperlipidemia; Translations: [Hyperlipidemia] 05-15-2022 Chronic Menstrual disorders (13 sources) Irregular periods; Translations: [Irregular menstrual cycle] Resolved: 11-23-2018 11-19-2018 Chronic Other aftercare (1 source) History of repair of umbilical hernia; Translations: [Encounter for follow-up examination after completed treatment for conditions other than malignant neoplasm] 11-06-2023 Episodic Comment on above: Patient 42-year-old female who makes her second postoperative visit following robot-assisted umbilical hernia repair with mesh on 10/02/2023. She has recovered well and denies any concerns. She has remained vigilant to the activity restrictions imposed postoperatively. Her exam is reassuring again of this fact. Other connective tissue disease (9 sources) Pain in right foot; Translations: [Bilateral heel pain] Resolved: 05-15-2022 11-23-2018 Episodic Comment on above: likely heel pain syn drome plantar fasciatis, sending to Retail Representative, exercises given, anti inflammatory Other ear and sense organ disorders (13 sources) Otalgia; Translations: [Otalgia, unspecified ear] 11-19-2018 Episodic Other lower respiratory disease (20 sources) Cough; Translations: [Cough] Resolved: 11-23-2018 11-19-2018 Episodic Other non-traumatic joint disorders (13 sources) Arthralgia of the ankle and/or foot; Translations: [Pain in joint involving ankle and foot, unspecified laterality] Resolved: 11-23-2018 11-19-2018 Episodic Comment on above: ? lateral ligment st rain vs fracture. will get xray. work alot on feet. if negative will do air cast and crutches for partial weight bearing. Other non-traumatic joint disorders (6 sources) Pain in right knee; Translations: [Right knee pain] 05-15-2022 Episodic Comment on above: do therapy, possibly injections to help. orthopedics referralkicked by alfred October 2021 to lateral knee, went to ER and imaging normal. Other nutritional; endocrine; and metabolic disorders (6 sources) Body mass index 25-29 - overweight; Translations: [BMI 28.0-28.9,adult] 11-19-2018 Chronic Other nutritional; endocrine; and metabolic disorders (1 source) Body mass index 25-29 - overweight; Translations: [BMI 28.0-28.9,adult] 08-04-2019 Episodic Other nutritional; endocrine; and metabolic disorders (9 sources) Overweight in adulthood with body mass index of 25 or more but less than 30; Translations: [BMI 28.0-28.9,adult] 08-04-2019 Episodic Other and delivery including normal (13 sources) ; Translations: [] Resolved: 11-23-2018 11-19-2018 Episodic Comment on above: with twins 30 weeks Other screening for suspected conditions (not mental disorders or infectious disease) (2 sources) Encounter for screening mammogram for malignant neoplasm of breast; Translations: [Encounter for screening mammogram for malignant neoplasm of breast] Onset: 12-08-2024 Episodic Other upper respiratory disease (7 sources) Pain in throat Episodic Other upper respiratory infections (20 sources) Acute sinusitis, unspecified; Translations: [Acute sinusitis] Resolved: 11-23-2018 11-19-2018 Episodic Otitis media and related conditions (20 sources) Otitis media; Translations: [Otitis media] 11-19-2018 Episodic Residual codes; unclassified (14 sources) Family history of malignant neoplasm of breast; Translations: [Family history of breast cancer] 11-23-2018 Episodic Comment on above: Maternal Aunt and ma ternal cousins, sees Kirby to get mammogram age 39 Residual codes; unclassified (13 sources) Non-smoker; Translations: [Non-smoker] 11-23-2018 Episodic Skin and subcutaneous tissue infections (13 sources) Cellulitis and abscess of finger and toe ; Translations: [Cellulitis and abscess of digit] 11-19-2018 Episodic Unclassified (18 sources) Non-smoker; Translations: [Non-smoker] 11-19-2018 Unclassified (20 sources) Unclassified (12 sources) BMI 28.0-28.9,adult Unclassified (5 sources) Heel pain, bilateral Unclassified (5 sources) Family history of breast cancer Unclassified (8 sources) Encounter for screening for lipid disorder Unclassified (5 sources) Encounter for screening for other suspected endocrine disorder Unclassified (5 sources) Encounter for routine adult medical exam with abnormal findings Past or Other Problems Problem Classification Problem Date Documented Date Episodic/Chronic Acute and chronic tonsillitis (7 sources) Acute and chronic tonsillitis Administrative/social admission (6 sources) Medical examinations/reports status; Translations: [Well female exam with routine gynecological exam] Resolved: 10-20-2008 04-18-2015 Episodic Other connective tissue disease (2 sources) Bilateral heel pain; Translations: [Heel pain, bilateral] 11-23-2018 Comment on above: likely heel pain syn drome plantar fasciatis, sending to Retail Representative, exercises given, anti inflammatory Unclassified (7 sources) Contact dermatitis and other eczema due to plants (except food) (692.6) Unclassified (7 sources) Unclassified (7 sources) Irregular Menstraul Cycle (626.4) Unclassified (7 sources) ORAL CONTRACEPTIVES - COUNSELING ON PRESCRIPTION OF (V25.01) Unclassified (10 sources) MENSTRUAL FLOW, NOS Resolved: 11-23-2018 11-19-2018 Unclassified (7 sources) Ankle/Foot Pain (719.47) Unclassified (7 sources) Well Female (Younger Female) (V72.31) Unclassified (7 sources) Otalgia, unspecified (388.70) Unclassified (20 sources) Patient encounter status; Translations: [General counseling on prescription of oral contraceptives] Resolved: 11-30-2008 04-21-2015 Unclassified (7 sources) CELLULITIS/ABSCESS, DIGIT NOS (681.9) Results Test Name Value Interpretation Reference Range 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: No Allergies No Known Allergies Allergy (Verified 12/08/24 10:23) Medications ???Medication ???Instructions ???Recorded ???Confirmed ???Type multivitamin with minerals-folic 1 tab PO DAILY 09/18/23 12/08/24 H istory acid 200 mcg chewable tablet (Womens Daily Gummies) norelgestromin 150 mcg-e.estradiol 1 patch transdermal EVANS #9 ea 02/2412/08/24 Rx 35 mcg/24 hr weekly transderm patch (Xulane) Is last menstrual period known: No Post menopausal: No Patient : No : No Control Method: xulane patch PFSH Medical History Wears glasses Wears contact lenses Non-smoker Surgical History Hx of umbilical hernia repair History of S/P myringotomy with insertion of tube S/P appendectomy S/P tonsillectomy Family History Grandmother Diabetes Social History number of children: 2 current occupational status: employed current occupation: [employer] pets and animals: Yes Smoking Status: Never smoker alcohol intake: never substance use type: does not use caffeine: Yes eating out: rarely or never during the past year weight has: remained stable seatbelt use: always do you feel safe at home: Yes History 1 Elective abortions Hx Para 0 Spontaneous abortions Hx # Term Pregnancies 1 Ectopic pregnancies Hx # Pregnancies Multiple births 1 # of living children 2 HPI Encounter for routine gynecological examination Details: ANAYELI ESCOBEDO is a 44 year old who presents for annual exam. She reports no issues or concerns today. Continues with xulane patch; has spotting during her normal cycle days. Continues to use patch compliantly and happy with this. Last PAP: 2023; normal. HPV neg History of abnormal PAP: no Last mammogram: 2023; normal History of abnormal mammogram: no Colon cancer screening: age 44 Other preventative health care screenings: Gema Elizalde; PCP Female Reproductive History Last Menstrual Period: 11/01/24 Bleeding Duration: 1 Questions: metorrhagia: No, sexually active: Yes, dyspareunia: No and PCB: No ROS Const Constitutional: Denies chills, fatigue, fever(s), headache(s) or weight loss Eyes Eyes: Denies change in vision ENT ENT: Denies dizziness Resp Resp: Denies cough GI GI: Denies abdominal pain, constipation or nausea : Denies difficulty voiding, dysuria, hematuria, nipple discharge, pelvic pain, prolapse symptoms, urinary incontinence, vaginal discharge, vaginal dryness, vaginal odor or vaginal pruritus Skin Skin/Breast: Denies alopecia, rash, breast mass, breast pain, breast skin changes or nipple discharge Neuro Neuro: Denies dizziness Psych Psych: Denies anxiety or depression Endo Endo: Denies cold intolerance, excessive sweating or heat intolerance Exam Const General: cooperative, healthy appearing, comfortable, no acute distress, well groomed and well hydrated Nutritional Appearance: well nourished Orientation: alert, awake and oriented x3 HENMT Head: normal to inspection and normocephalic Ears: hearing grossly normal bilaterally and external ears normal Nose: external nose normal Face and sinus: normal facial exam Eyes General: appearance normal, both eyes and all related structures Neck Neck: normal visual inspection, full ROM and no lymphadenopathy Thyroid: thyroid normal Chest Chest palpation inspection: normal inspection of the chest Breast inspection: normal inspection of the breasts and normal inspection of the axillae Breast palpation: normal palpation of the breasts, normal palpation of the axillae and no axillary lymphadenopathy Resp Effort Inspection: normal respiratory effort, able to speak in complete sentences and symmetric chest movement GI Inspection: normal to inspection Palpation: soft and no hepatosplenomegaly General: bladder normal to palpation External Female Exam: normal external appearance and normal appearance of the urethra Urethra: normal appearance of the urethra Speculum Exam - Vagina: normal appearance of the vagina, normal vaginal discharge, no lesions and nontender Speculum Exam - Ce (more content not included)... Normal [facility] - Chemistry and C hemistry - challengeOrdered By: Steve Su on 10-02-2023 HCG ( test) Ql (U) Negative [facility] Comment on above: Very dilute urine sp ecimens, as indicated by a low specificgravity, may not contain motor vehicle field representative levels of hCG. If is still suspected, a first morning urinespecimen should be collected 48 hours later and tested. No Panel InformationOrdered By: Joaquin Rowe on 08-22-2023 Nasal Screen MRSA/MSSA [facility] LIPID PANEL ([id number])Ordered B y: Interactive Media Marketing Strategist on 10-21-2019 Cholesterol [Mass/Vol] 173 mg/dL Normal 100-199 [facility]; [facility] Work Phone: Comment on above: PATIENT WAS FASTINGP ERFORMED BY: [id number] [facility]Nov[facility] [id number] Cholesterol in HDL [Mass/Vol] 57 mg/dL Normal [facility]; [facility] Work Phone: Comment on above: PATIENT WAS FASTINGP ERFORMED BY: [id number] [facility]SynesiNov[facility] [id number] Cholesterol in LDL [Mass/Vol] 98 mg/dL Normal 0-99 [facility]; [facility] Work Phone: Comment on above: PATIENT WAS FASTINGP ERFORMED BY: KANDACE [facility] [id number]Dublin [place] [id number] Cholesterol in LDL/Cholesterol in HDL [Mass ratio] 1.7 {ratio} Normal 0.0-3.2 [facility]; [facility] Work Phone: Comment on above: LDL/HDL Ratio Men Wo men 1/2 Avg.Risk 1.0 1.5 Avg.Risk 3.6 3.2 2X Avg.Risk 6.2 5.0 3X Avg.Risk 8.0 6.1 PATIENT WAS FASTINGP ERFORMED BY: KANDACE [facility] [id number]Dublin [place] [id number] Cholesterol in VLDL [Mass/Vol] 18 mg/dL Normal 5-40 [facility]; [facility] Work Phone: Comment on above: PATIENT WAS FASTINGP ERFORMED BY: KANDACE [facility] [id number]Duin [place] [id number] Triglyceride [Mass/Vol] 90 mg/dL Normal 0-149 [facility]; [facility] Work Phone: Comment on above: PATIENT WAS FASTINGP ERFORMED BY: KANDACE [facility] [id number] [facility] [place] [id number] CBC & PLATELETS (AUTO) ([id number])Ordered By: Interactive Media Marketing Strategist on 11-26-2018 Erythrocyte distribution width (RBC) [Ratio] 12.4 % Normal 12.3-15.4 [facility] Work Phone: Comment on above: PATIENT WAS FASTINGP ERFORMED BY: KANDACE [facility] [id number] [place] [id number] Hematocrit (Bld) [Volume fraction] 37.9 % Normal 34.0-46.6 [facility] Work Phone: Comment on above: PATIENT WAS FASTINGP ERFORMED BY: KANDACE [facility] [id number]Dublin [place] [id number] Hemoglobin (Bld) [Mass/Vol] 13.2 g/dL Normal 11.1-15.9 [facility] Work Phone: Comment on above: PATIENT WAS FASTINGP ERFORMED BY: CB [facility] [id number] [place] [id number] MCH (RBC) [Entitic mass] 28.4 pg Normal 26.6-33.0 [facility] Work Phone: Comment on above: PATIENT WAS FASTINGP ERFORMED BY: CB [facility] [id number] [place] [id number] MCHC (RBC) [Mass/Vol] 34.8 g/dL Normal 31.5-35.7 [facility] Work Phone: Comment on above: PATIENT WAS FASTINGP ERFORMED BY: CB [facility] [id number] [place] [id number] MCV (RBC) [Entitic vol] 82 fL Normal 79-97 [facility] Work Phone: Comment on above: PATIENT WAS FASTINGP ERFORMED BY: CB [facility] [id number] [place] [id number] Platelets (Bld) [#/Vol] 340 {x10E3/uL} Normal 150-450 [facility] Work Phone: Comment on above: PATIENT WAS FASTINGP ERFORMED BY: CB [facility] [id number] [place] [id number] Platelets (Bld) [#/Vol] 340 10*3/uL Normal 150-450 [facility]; [facility] Work Phone: Comment on above: PATIENT WAS FASTINGP ERFORMED BY: CB [facility] [id number] RoadDublin [place] [id number] RBC (Bld) [#/Vol] 4.64 {x10E6/uL} Normal 3.77-5.28 [facility] Internal Medicine Work Phone: Comment on above: PATIENT WAS FASTINGP ERFORMED BY: CB [facility] [id number] [address] RoadDublin [place] [id number] RBC (Bld) [#/Vol] 4.64 10*6/uL Normal 3.77-5.28 [facility]; [facility] Work Phone: Comment on above: PATIENT WAS FASTINGP ERFORMED BY: KANDACE Cardoso6370 [facility]in [place] [id number] WBC (Bld) [#/Vol] 9.0 {x10E3/uL} Normal 3.4-10.8 [facility] Work Phone: Comment on above: PATIENT WAS FASTINGP ERFORMED BY: KANDACE LabReuben Cardoso6370 [facility] [place] [id number] WBC (Bld) [#/Vol] 9.0 10*3/uL Normal 3.4-10.8 [facility]; [facility] Work Phone: Comment on above: PATIENT WAS FASTINGP ERFORMED BY: KANDACE Carlosricardo [id number] [facility] [id number] LIPID PANEL ([id number])Ordered B y: Interactive Media Marketing Strategist on 11-26-2018 Cholesterol [Mass/Vol] 204 mg/dL Abnormal 100-199 [facility] Work Phone: Comment on above: PATIENT WAS FASTINGP ERFORMED BY: KANDACE Rama Cardoso6370 [facility] [id number] Cholesterol in HDL [Mass/Vol] 51 mg/dL Normal [facility] Work Phone: Comment on above: PATIENT WAS FASTINGP ERFORMED BY: KANDACE LabReuben [id number] [facility] [id number] Cholesterol in LDL [Mass/Vol] 129 mg/dL Abnormal 0-99 [facility] Work Phone: Comment on above: PATIENT WAS FASTINGP ERFORMED BY: KANDACE LabCo [id number] [facility] [place] [id number] Cholesterol in LDL/Cholesterol in HDL [Mass ratio] 2.5 {ratio} Normal 0.0-3.2 [facility] Work Phone: Comment on above: LDL/HDL Ratio Men Wo men 1/2 Avg.Risk 1.0 1.5 Avg.Risk 3.6 3.2 2X Avg.Risk 6.2 5.0 3X Avg.Risk 8.0 6.1 PATIENT WAS FASTINGP ERFORMED BY: KANDACE LabReuben HinojosaVvadtp2721 [address] RoadDublin [place] [id number] Cholesterol in VLDL [Mass/Vol] 24 mg/dL Normal 5-40 [facility] Work Phone: Comment on above: PATIENT WAS FASTINGP ERFORMED BY: KANDACE LabReuben HinojosaCquxbq7393 [address] RoadDublin [place] [id number] Triglyceride [Mass/Vol] 120 mg/dL Normal 0-149 [facility] Work Phone: Comment on above: PATIENT WAS FASTINGP ERFORMED BY: KANDACE Hinojosalin6370 [address] RoadDublin [place] [id number] Metabolic Panel, Comprehensi ve ([id number])Ordered By: Interactive Media Marketing Strategist on 11-26-2018 Albumin [Mass/Vol] 4.0 g/dL Normal 3.5-5.5 [facility] Internal Medicine Work Phone: Comment on above: PATIENT WAS FASTINGP ERFORMED BY: KANDACE Hinojosalin6370 [address] RoadDublin [place] [id number] Albumin/Globulin [Mass ratio] 1.5 {ratio} Normal 1.2-2.2 [facility] Work Phone: Comment on above: PATIENT WAS FASTINGP ERFORMED BY: KANDACE LabReuben HinojosaGqpvhn1530 [address] RoadDublin [place] [id number] ALP [Catalytic activity/Vol] 102 [iU]/L Normal 39-117 [facility] Work Phone: Comment on above: PATIENT WAS FASTINGP ERFORMED BY: KANDACE LabCoricardo Jilnhs7194 [address] RoadDublin [place] [id number] ALP [Catalytic activity/Vol] 102 U/L Normal 39-117 [facility]; [facility] Work Phone: Comment on above: PATIENT WAS FASTINGP ERFORMED BY: KANDACE [facility] [id number] [address] RoadDublin [place] [id number] ALT [Catalytic activity/Vol] 8 [iU]/L Normal 0-32 [facility] Work Phone: Comment on above: PATIENT WAS FASTINGP ERFORMED BY: [facility] [id number] [address] RoadDublin [place] [id number] ALT [Catalytic activity/Vol] 8 U/L Normal 0-32 [facility]; [facility] Work Phone: Comment on above: PATIENT WAS FASTINGP ERFORMED BY: [facility] Trarmp7263 [address] RoadDublin [place] [id number] AST [Catalytic activity/Vol] 12 [iU]/L Normal 0-40 [facility] Work Phone: Comment on above: PATIENT WAS FASTINGP ERFORMED BY: [facility] Fjodhe3376 [address] RoadDublin [place] [id number] AST [Catalytic activity/Vol] 12 U/L Normal 0-40 [facility]; [facility] Work Phone: Comment on above: PATIENT WAS FASTINGP ERFORMED BY: [facility] [id number] [address] RoadDublin [place] [id number] Bilirubin [Mass/Vol] 0.4 mg/dL Normal 0.0-1.2 Comp rehensive Internal Medicine Work Phone: Comment on above: PATIENT WAS FASTINGP ERFORMED BY: [facility] Ivaxdp6520 [address] RoadDublin [place] [id number] Calcium [Mass/Vol] 9.3 mg/dL Normal 8.7-10.2 [facility] Internal Medicine Work Phone: Comment on above: PATIENT WAS FASTINGP ERFORMED BY: [facility] Aocvej3701 [address] RoadDublin [place] [id number] Chloride [Moles/Vol] 105 mmol/L Normal 96-106 Comp [facility] Work Phone: Comment on above: PATIENT WAS FASTINGP ERFORMED BY: [facility] [id number] [address] RoadDublin [place] [id number] CO2 [Moles/Vol] 22 mmol/L Normal 20-29 Comprehen [facility] Internal Medicine Work Phone: Comment on above: PATIENT WAS FASTINGP ERFORMED BY: [facility] [id number] [address] RoadDublin [place] [id number] Creatinine [Mass/Vol] 0.90 mg/dL Normal 0.57-1.00 [facility] Internal Medicine Work Phone: Comment on above: PATIENT WAS FASTINGP ERFORMED BY: [facility] Fizlbp6253 [address] RoadDublin [place] [id number] GFR/1.73 sq M predicted among blacks CKD-EPI (S/P/Bld) [Vol rate/Area] 93 mL/min/1.73 Normal [facility] Internal Medicine Work Phone: Comment on above: PATIENT WAS FASTINGP ERFORMED BY: [facility] [id number] [address] RoadDublin [place] [id number] GFR/1.73 sq M predicted among non-blacks CKD-EPI (S/P/Bld) [Vol rate/Area] 81 mL/min/1.73 Normal [facility] Internal Medicine Work Phone: Comment on above: PATIENT WAS FASTINGP ERFORMED BY: [facility] [id number] [address] RoadDublin [place] [id number] Globulin (S) [Mass/Vol] 2.7 g/dL Normal 1.5-4.5 [facility] Internal Medicine Work Phone: Comment on above: PATIENT WAS FASTINGP ERFORMED BY: [facility] [id number] [address] RoadDublin [place] [id number] Glucose [Mass/Vol] 89 mg/dL Normal 65-99 [facility] Internal Medicine Work Phone: Comment on above: PATIENT WAS FASTINGP ERFORMED BY: [facility] [id number] [address] RoadDublin [place] [id number] Potassium [Moles/Vol] 4.7 mmol/L Normal 3.5-5.2 [facility] Internal Medicine Work Phone: Comment on above: PATIENT WAS FASTINGP ERFORMED BY: [facility] Kwsmbt6615 [address] RoadDublin [place] [id number] Protein [Mass/Vol] 6.7 g/dL Normal 6.0-8.5 [facility] Internal Medicine Work Phone: Comment on above: PATIENT WAS FASTINGP ERFORMED BY: KANDACE [facility] Tjowdp1712 [address] [facility]in [place] [id number] Sodium [Moles/Vol] 142 mmol/L Normal 134-144 [facility] Internal Medicine Work Phone: Comment on above: PATIENT WAS FASTINGP ERFORMED BY: [facility] Bfvbzi2816 [facility] [id number] Urea nitrogen [Mass/Vol] 13 mg/dL Normal 6-20 [facility] Internal Medicine Work Phone: Comment on above: PATIENT WAS FASTINGP ERFORMED BY: [facility] [id number] [address] [facility] [id number] Urea nitrogen/Creatinine [Mass ratio] 14 mg/mg Normal 9-23 [facility] Internal Medicine Work Phone: Comment on above: PATIENT WAS FASTINGP ERFORMED BY: [facility] [id number] [facility] [id number] TSH (THYROID STIMULATING HOR RALPH) ([id number])Ordered By: Interactive Media Marketing Strategist on 11-26-2018 TSH Qn 2.430 {uIU/mL} Normal 0.450-4.500 [facility] Internal Medicine Work Phone: Comment on above: PATIENT WAS FASTINGP ERFORMED BY: [facility] [id number] [facility] [id number] THROAT CULTURE ([id number])Ordere d By: Interactive Media Marketing Strategist on 11-19-2018 Bacteria identified Respiratory culture Nom (Unsp spec) BETAGA Abnormal [facility] Internal Medicine Work Phone: Comment on above: Beta hemolytic Strep tococcus, group ALight growthPenicillin and ampicillin are drugs of choice for treatment ofbeta-hemolytic streptococcal infections. Susceptibility testing ofpenicillins and other beta-lactam agents approved by the FDA fortreatment of beta-hemolytic streptococcal infections need not beperformed routinely because nonsusceptible isolates are extremelyrare in any beta-hemolytic streptococcus and have not been reportedfor Streptococcus pyogenes (group A). (CLSI)Routine respiratory floraModerate growth PATIENT NOT FASTINGP ERFORMED BY: CB [facility] [id number] [address] [facility] [id number] Information: SRC:TH Bacteria identified Respiratory culture Nom (Unsp spec) Final report Abnormal [facility] Work Phone: Comment on above: PATIENT NOT FASTINGP ERFORMED BY: [facility] [id number] [facility] [id number] Information: SRC:TH JOLENE CULTURE-OTHER ([id number])Ord ered By: Jolie Carolina on 03-09-2009 Bacteria identified Respiratory culture Nom (Unsp spec) RRF Normal [facility] Work Phone: Comment on above: Routine respiratory simeon PATIENT NOT FASTINGC linical Information: SRC:THREsteban [id number] PERFORMED BY: KANDACE LabMclaren [facility]6370 [facility] [id number] Bacteria identified Respiratory culture Nom (Unsp spec) Final report Normal [facility] Work Phone: Comment on above: PATIENT NOT FASTINGC linical Information: SRC:THRT [id number] PERFORMED BY: KANDACE LabMichelle Ville [id number] [facility] [id number] Vital Signs Date Time Vital Sign Value Performing Clinician Facility 12-08-2024 10:21-0400 Body height 170.18 cm Gema Elizalde COPIER OPERATOR-C Work Phone: [facility] 12-08-2024 10:21-0400 Body mass index (BMI) [Ratio] 31.3 kg/m2 Gema Elizalde COPIER OPERATOR-C Work Phone: [facility] 12-08-2024 10:21-0400 Body weight 90.71 kg Gema Elizalde COPIER OPERATOR-C Work Phone: [facility] 12-08-2024 10:21-0400 Diastolic blood pressure 84 mm[Hg] Gema Elizalde COPIER OPERATOR-C Work Phone: [facility] 12-08-2024 10:21-0400 Systolic blood pressure 136 mm[Hg] Gema Elizalde COPIER OPERATOR-C Work Phone: [facility] 10-02-2023 18:47-0400 Body temperature 98.1 [degF] COPIER OPERATOR-C Gema Tonio Work Phone: [facility] 10-02-2023 18:47-0400 Diastolic blood pressure 76 mm[Hg] COPIER OPERATOR-C Gema Tonio Work Phone: [facility] 10-02-2023 18:47-0400 Heart rate 72 /min COPIER OPERATOR-C Gema Tonio Work Phone: [facility] 10-02-2023 18:47-0400 Respiratory rate 16 /min COPIER OPERATOR-C Gema Tonio Work Phone: [facility] 10-02-2023 18:47-0400 SaO2% (BldA) [Mass fraction] 98 % COPIER OPERATOR-C Gema Tonio Work Phone: [facility] 10-02-2023 18:47-0400 Systolic blood pressure 139 mm[Hg] COPIER OPERATOR-C Gema Tonio Work Phone: [facility] 10-02-2023 10:22-0400 Body height 170.18 cm COPIER OPERATOR-C Gema Tonio Work Phone: [facility] 10-02-2023 10:22-0400 Body mass index (BMI) [Ratio] 31.1 kg/m2 COPIER OPERATOR-C Gema Tonio Work Phone: [facility] 10-02-2023 10:22-0400 Body weight 90.26 kg COPIER OPERATOR-C Gema Tonio Work Phone: [facility] 08-22-2023 08:09-0400 Body height 170.18 cm COPIER OPERATOR-C Gema Tonio Work Phone: [facility] 08-22-2023 08:09-0400 Body mass index (BMI) [Ratio] 31.8 kg/m2 COPIER OPERATOR-C Gema Tonio Work Phone: [facility] 08-22-2023 08:09-0400 Body temperature 97.6 [degF] COPIER OPERATOR-C Gema Tonio Work Phone: [facility] 08-22-2023 08:09-0400 Body weight 92.19 kg COPIER OPERATOR-C Gema Tonio Work Phone: [facility] 08-22-2023 08:09-0400 Diastolic blood pressure 83 mm[Hg] COPIER OPERATOR-C Gema Tonio Work Phone: [facility] 08-22-2023 08:09-0400 Heart rate 80 /min COPIER OPERATOR-C Gema Tonio Work Phone: [facility] 08-22-2023 08:09-0400 Respiratory rate 18 /min COPIER OPERATOR-C Gema Tonio Work Phone: [facility] 08-22-2023 08:09-0400 SaO2% (BldA) [Mass fraction] 99 % COPIER OPERATOR-C Gema Tonio Work Phone: [facility] 08-22-2023 08:09-0400 Systolic blood pressure 127 mm[Hg] COPIER OPERATOR-C Gema Pizanogar Work Phone: [facility] 05-14-2022 16:11-0500 Body height 172.72 cm Lisandra Amin MA [facility]; [facility] Work Phone: 05-14-2022 16:11-0500 Body mass index (BMI) [Ratio] 28.93 kg/m2 Lisandra Amin MA [facility]; [facility] Work Phone: 05-14-2022 16:11-0500 Body surface area Derived from formula 2 m2 Lisandra Amin MA [facility]; [facility] Work Phone: 05-14-2022 16:11-0500 Body temperature 96.2 [degF] Lisandra Amin MA [facility]; [facility] Work Phone: 05-14-2022 16:11-0500 Body weight 86.3 kg Lisandra Amin MA [facility]; [facility] Work Phone: 05-14-2022 16:11-0500 Diastolic blood pressure 90 mm[Hg] Lisandra Amin MA [facility]; [facility] Work Phone: Comment on above: Patient Position: Sitting; Cuff Location : Left Arm; Cuff Size: Standard 05-14-2022 16:11-0500 Heart rate 85 /min Lisandra Amin MA [facility]; [facility] Work Phone: Comment on above: Pattern: Regular 05-14-2022 16:11-0500 Respiratory rate 17 /min Lisandra Amin MA [facility]; [facility] Work Phone: Comment on above: Pattern: Unlabored 05-14-2022 16:11-0500 SaO2% (BldA) [Mass fraction] 98 % Lisandra Amin MA [facility]; [facility] Work Phone: Comment on above: Room air 05-14-2022 16:11-0500 Systolic blood pressure 120 mm[Hg] Lisandra Amin MA [facility]; [facility] Work Phone: Comment on above: Patient Position: Sitting; Cuff Location : Left Arm; Cuff Size: Standard 11-29-2021 20:52-0400 Body height 170.18 cm [facility] Work Phone: 11-29-2021 20:52-0400 Body mass index (BMI) [Ratio] 29.7 kg/m2 [facility] Work Phone: 11-29-2021 20:52-0400 Body temperature 97.8 [degF] [facility] Work Phone: 11-29-2021 20:52-0400 Body weight 86.18 kg [facility] Work Phone: 11-29-2021 20:52-0400 Diastolic blood pressure 89 mm[Hg] [facility] Work Phone: 11-29-2021 20:52-0400 Heart rate 73 /min [facility] Work Phone: 11-29-2021 20:52-0400 Respiratory rate 16 /min [facility] Work Phone: 11-29-2021 20:52-0400 SaO2% (BldA) [Mass fraction] 100 % [facility] Work Phone: 11-29-2021 20:52-0400 Systolic blood pressure 138 mm[Hg] [facility] Work Phone: 11-23-2018 09:45-0400 BMI (Body Mass Index) 28.89 kg/m2 Genna [facility]Scale [facility] Work Phone: 11-23-2018 09:45-0400 Body Temperature 97.3 [degF] Genna CoScale [facility] Internal Medicine Work Phone: Comment on above: Method: Temporal 11-23-2018 09:45-0400 Body weight 86.18 kg Genna CoScale [facility] Work Phone: 11-23-2018 09:45-0400 BP Diastolic 72 mm[Hg] Genna CoScale [facility] Internal Medicine Work Phone: Comment on above: Patient Position: Sitting; Cuff Location : Left Arm; Cuff Size: Standard 11-23-2018 09:45-0400 BP Systolic 118 mm[Hg] Genna CoScale [facility] Work Phone: Comment on above: Patient Position: Sitting; Cuff Location : Left Arm; Cuff Size: Standard 11-23-2018 09:45-0400 BSA (Body Surface Area) 2 m2 Genna CoScale [facility] Work Phone: 11-23-2018 09:45-0400 Height 172.72 cm [employer] [facility] Work Phone: 11-23-2018 09:45-0400 Pulse (Heart Rate) 91 /min Genna CoScale [facility] Internal Medicine Work Phone: Comment on above: Pattern: Regular 11-23-2018 09:45-0400 Pulse Oximetry 98 % Claire Hernandez [facility] Internal Medicine Work Phone: Comment on above: Room air 11-23-2018 09:45-0400 Respiratory Rate 18 /min Genna Leblanc [facility] Internal Medicine Work Phone: Comment on above: Pattern: Unlabored 11-23-2018 09:45-0400 SaO2% (BldA) [Mass fraction] 98 % Genna Leblanc [facility] Internal Medicine; [facility] Work Phone: Comment on above: Room air 11-23-2018 09:45-0400 Weight 86.18 kg Claire Hernandez [facility] Internal Medicine Work Phone: 11-19-2018 07:40-0400 BMI (Body Mass Index) 28.89 kg/m2 Genan Leblanc [facility] Work Phone: 11-19-2018 07:40-0400 Body Temperature 98.1 [degF] Genna Leblanc [facility] Internal Medicine Work Phone: Comment on above: Method: Temporal 11-19-2018 07:40-0400 Body weight 86.18 kg Genna Leblanc [facility] Internal Medicine Work Phone: 11-19-2018 07:40-0400 BP Diastolic 82 mm[Hg] Genna Leblanc [facility] Internal Medicine Work Phone: Comment on above: Patient Position: Sitting; Cuff Location : Left Arm; Cuff Size: Standard 11-19-2018 07:40-0400 BP Systolic 120 mm[Hg] Genna Leblanc [facility] Internal Medicine Work Phone: Comment on above: Patient Position: Sitting; Cuff Location : Left Arm; Cuff Size: Standard 11-19-2018 07:40-0400 BSA (Body Surface Area) 2 m2 Genna Leblanc [facility] Internal Medicine Work Phone: 11-19-2018 07:40-0400 Height 172.72 cm Genna Leblanc [facility] Internal Medicine Work Phone: 11-19-2018 07:40-0400 Pulse (Heart Rate) 107 /min Genna Leblanc [facility] Internal Medicine Work Phone: Comment on above: Pattern: Regular 11-19-2018 07:40-0400 Pulse Oximetry 98 % Claire Hernandez [facility] Internal Medicine Work Phone: Comment on above: Room air 11-19-2018 07:40-0400 Respiratory Rate 18 /min Genna Leblanc [facility] Internal Medicine Work Phone: Comment on above: Pattern: Unlabored 11-19-2018 07:40-0400 SaO2% (BldA) [Mass fraction] 98 % Genna Leblanc [facility] Internal Medicine; [facility] Work Phone: Comment on above: Room air 11-19-2018 07:40-0400 Weight 86.18 kg Claire Hernandez [facility] Internal Medicine Work Phone: 06-07-2014 15:43-0500 BMI (Body Mass Index) 26.76 kg/m2 Claire Hernandez [facility] Work Phone: 06-07-2014 15:43-0500 Body Temperature 97.8 [degF] Cliare Hernandez [facility] Internal Medicine Work Phone: Comment on above: Method: Oral 06-07-2014 15:43-0500 Body weight 79.83 kg Claire Hernandez [facility] Internal Medicine Work Phone: 06-07-2014 15:43-0500 BP Diastolic 76 mm[Hg] Claire Hernandez [facility] Internal Medicine Work Phone: Comment on above: Patient Position: Sitting; Cuff Location : Left Arm; Cuff Size: Standard 06-07-2014 15:43-0500 BP Systolic 124 mm[Hg] Claire Hernandez [facility] Internal Medicine Work Phone: Comment on above: Patient Position: Sitting; Cuff Location : Left Arm; Cuff Size: Standard 06-07-2014 15:43-0500 BSA (Body Surface Area) 1.94 m2 Claire Hernandez [facility] Internal Medicine Work Phone: 06-07-2014 15:43-0500 Height 172.72 cm Claire Hernandez [facility] Internal Medicine Work Phone: 06-07-2014 15:43-0500 Pulse (Heart Rate) 102 /min Claire Hernandez [facility] Internal Medicine Work Phone: Comment on above: Pattern: Regular 06-07-2014 15:43-0500 Pulse Oximetry 98 % Claire Hernandez [facility] Internal Medicine Work Phone: Comment on above: Room air 06-07-2014 15:43-0500 Respiratory Rate 20 /min Claire Hernandez [facility] Internal Medicine Work Phone: 06-07-2014 15:43-0500 SaO2% (BldA) [Mass fraction] 98 % Claire Hernandez Work Phone: [facility]; [facility] Internal Medicine Work Phone: Comment on above: Room air 06-07-2014 15:43-0500 Weight 79.83 kg Claire Hernandez [facility] Internal Medicine Work Phone: 01-18-2011 11:45-0400 BMI (Body Mass Index) 26.76 kg/m2 LAURA Montgomery LPN [facility] Internal Medicine Work Phone: 01-18-2011 11:45-0400 Body Temperature 97.6 [degF] LAURA Montgomery [facility] Internal Medicine Work Phone: Comment on above: Method: Oral 01-18-2011 11:45-0400 Body weight 79.83 kg LAURASUSAN Montgomery CREDIT CONTROL MANAGER [facility] Internal Medicine Work Phone: 01-18-2011 11:45-0400 BP Diastolic 76 mm[Hg] LAURA Montgomery [facility] Internal Medicine Work Phone: Comment on above: Patient Position: Sitting; Cuff Location : Left Arm; Cuff Size: Standard 01-18-2011 11:45-0400 BP Systolic 118 mm[Hg] LAURA Montgomery [facility] Internal Medicine Work Phone: Comment on above: Patient Position: Sitting; Cuff Location : Left Arm; Cuff Size: Standard 01-18-2011 11:45-0400 BSA (Body Surface Area) 1.94 m2 LAURA Montgomery LPN [facility] Internal Medicine Work Phone: 01-18-2011 11:45-0400 Height 172.72 cm LAURA Montgomery CREDIT CONTROL MANAGER [facility] Internal Medicine Work Phone: 01-18-2011 11:45-0400 Pulse (Heart Rate) 70 /min LAURA Montgomery [facility] Internal Medicine Work Phone: Comment on above: Pattern: Regular 01-18-2011 11:45-0400 Respiratory Rate 18 /min LAURA Montgomery LINDSEY [facility] Work Phone: Comment on above: Pattern: Unlabored 01-18-2011 11:45-0400 Weight 79.83 kg Claire Hernandez [facility] Internal Medicine Work Phone: 07-30-2010 12:11-0500 Body Temperature 97.5 [degF] Brittany Tavarez [facility] Internal Medicine Work Phone: 07-30-2010 12:11-0500 BP Diastolic 70 mm[Hg] Brittany Tavarez [facility] Internal Medicine Work Phone: Comment on above: Patient Position: Sitting; Cuff Location : Left Arm; Cuff Size: Large 07-30-2010 12:11-0500 BP Systolic 110 mm[Hg] Brittany Tavarez [facility] Internal Medicine Work Phone: Comment on above: Patient Position: Sitting; Cuff Location : Left Arm; Cuff Size: Large 07-30-2010 12:11-0500 Pulse (Heart Rate) 92 /min Brittany Tavarez [facility] Internal Medicine Work Phone: Comment on above: Pattern: Regular 07-30-2010 12:11-0500 Respiratory Rate 16 /min Brittany Tavarez [facility] Internal Medicine Work Phone: Comment on above: Pattern: Unlabored 05-12-2009 11:34-0500 BMI (Body Mass Index) 26.84 kg/m2 Jolie Carolina RN [facility] Work Phone: 05-12-2009 11:34-0500 Body Temperature 97.9 [degF] Jolie Carolina RN [facility] Work Phone: Comment on above: Method: Oral 05-12-2009 11:34-0500 Body weight 80.06 kg Jolie Carolina RN [facility] Work Phone: 05-12-2009 11:34-0500 BP Diastolic 76 mm[Hg] Jolie Carolina RN [facility] Work Phone: Comment on above: Patient Position: Sitting; Cuff Location : Left Arm; Cuff Size: Large 05-12-2009 11:34-0500 BP Systolic 128 mm[Hg] Jolie Carolina RN [facility] Work Phone: Comment on above: Patient Position: Sitting; Cuff Location : Left Arm; Cuff Size: Large 05-12-2009 11:34-0500 BSA (Body Surface Area) 1.94 m2 Jolie Carolina RN [facility] Work Phone: 05-12-2009 11:34-0500 Head Circumference 0 cm Claire Hernandez [facility] Internal Medicine Work Phone: 05-12-2009 11:34-0500 Head Occipital-frontal circumference 0 cm Jolie Carolina RN [facility]; [facility] Work Phone: 05-12-2009 11:34-0500 Height 172.72 cm Jolie Carolina RN [facility] Work Phone: 05-12-2009 11:34-0500 Pulse (Heart Rate) 64 /min Jolie Carolina RN [facility] Work Phone: Comment on above: Pattern: Regular 05-12-2009 11:34-0500 Respiratory Rate 20 /min Jolie Carolina RN [facility] Work Phone: Comment on above: Pattern: Unlabored 05-12-2009 11:34-0500 Weight 80.06 kg Claire Hernandez [facility] Internal Medicine Work Phone: 03-09-2009 12:12-0400 BMI (Body Mass Index) 26.84 kg/m2 Jolie Carolina RN [facility] Work Phone: 03-09-2009 12:12-0400 Body Temperature 96.9 [degF] Jolie Carolina RN [facility] Work Phone: Comment on above: Method: Oral 03-09-2009 12:12-0400 Body weight 80.06 kg Jolie Carolina RN [facility] Work Phone: 03-09-2009 12:12-0400 BP Diastolic 78 mm[Hg] Jolie Carolina RN [facility] Work Phone: Comment on above: Patient Position: Sitting; Cuff Location : Left Arm; Cuff Size: Large 03-09-2009 12:12-0400 BP Systolic 122 mm[Hg] Jolie Carolina RN [facility] Internal Medicine Work Phone: Comment on above: Patient Position: Sitting; Cuff Location : Left Arm; Cuff Size: Large 03-09-2009 12:12-0400 BSA (Body Surface Area) 1.94 m2 Jolie Carolina RN [facility] Work Phone: 03-09-2009 12:12-0400 Head Circumference 0 cm Claire Hernandez [facility] Internal Medicine Work Phone: 03-09-2009 12:12-0400 Head Occipital-frontal circumference 0 cm Jolie Carolina RN [facility]; [facility] Work Phone: 03-09-2009 12:12-0400 Height 172.72 cm Jolie Carolina RN [facility] Work Phone: 03-09-2009 12:12-0400 Pulse (Heart Rate) 72 /min Jolie Carolina RN [facility] Work Phone: Comment on above: Pattern: Regular 03-09-2009 12:12-0400 Respiratory Rate 20 /min Jolie Carolina RN [facility] Internal Medicine Work Phone: Comment on above: Pattern: Unlabored 03-09-2009 12:12-0400 Weight 80.06 kg Claire Hernandez [facility] Internal Medicine Work Phone: 02-20-2007 08:11-0400 BMI (Body Mass Index) 26.84 kg/m2 Claire Hernandez [facility] Internal Medicine Work Phone: 02-20-2007 08:11-0400 Body weight 80.06 kg Claire Hernandez [facility] Internal Medicine Work Phone: 02-20-2007 08:11-0400 BP Diastolic 64 mm[Hg] Claire Hernandez [facility] Internal Medicine Work Phone: Comment on above: Patient Position: Sitting; Cuff Location : Left Arm; Cuff Size: Standard 02-20-2007 08:11-0400 BP Systolic 98 mm[Hg] Claire Dela Cruzletitia [facility] Internal Medicine Work Phone: Comment on above: Patient Position: Sitting; Cuff Location : Left Arm; Cuff Size: Standard 02-20-2007 08:11-0400 BSA (Body Surface Area) 1.94 m2 Claire Hernandez [facility] Internal Medicine Work Phone: 02-20-2007 08:11-0400 Head Circumference 0 cm Claire Millardletitia [facility] Internal Medicine Work Phone: 02-20-2007 08:11-0400 Head Occipital-frontal circumference 0 cm Claire Hernandez Work Phone: [facility]; [facility] Internal Medicine Work Phone: 02-20-2007 08:11-0400 Height 172.72 cm Claire Millardletitia [facility] Internal Medicine Work Phone: 02-20-2007 08:11-0400 Pulse (Heart Rate) 72 /min Claire Millardletitia [facility] Internal Medicine Work Phone: Comment on above: Pattern: Regular 02-20-2007 08:11-0400 Respiratory Rate 16 /min Claire Hernandez [facility] Internal Medicine Work Phone: Comment on above: Pattern: Unlabored 02-20-2007 08:11-0400 Weight 80.06 kg Claire Hernandez [facility] Internal Medicine Work Phone: 01-26-2007 08:16-0400 Body Temperature 97.6 [degF] LAURA Montgomery [facility] Internal Medicine Work Phone: Comment on above: Method: Oral 01-26-2007 08:16-0400 Body weight 0 kg LAURA Ulises CREDIT CONTROL MANAGER [facility] Internal Medicine Work Phone: 01-26-2007 08:16-0400 BP Diastolic 76 mm[Hg] LAURA Montgomery [facility] Internal Medicine Work Phone: Comment on above: Patient Position: Sitting; Cuff Location : Left Arm; Cuff Size: Standard 01-26-2007 08:16-0400 BP Systolic 122 mm[Hg] LAURA Ulises [facility] Internal Medicine Work Phone: Comment on above: Patient Position: Sitting; Cuff Location : Left Arm; Cuff Size: Standard 01-26-2007 08:16-0400 Head Circumference 0 cm Claire Ciesa [facility] Work Phone: 01-26-2007 08:16-0400 Head Occipital-frontal circumference 0 cm LAURA Montgomery LINDSEY [facility]; [facility] Work Phone: 01-26-2007 08:16-0400 Height 0 cm LAURA Montgomery CREDIT CONTROL MANAGER [facility] Work Phone: 01-26-2007 08:16-0400 Pulse (Heart Rate) 70 /min LAURA Montgomery [employer]EDIT CONTROL MANAGER [facility] Work Phone: Comment on above: Pattern: Regular 01-26-2007 08:16-0400 Respiratory Rate 20 /min LAURA Montgomery LPN [facility] Work Phone: Comment on above: Pattern: Unlabored 01-26-2007 08:16-0400 Weight 0 kg Claire Hernandez [facility] Work Phone: Encounters Encounter Date Encounter Type Care Provider Facility Start: 12-13-2024 ambulatory Indy Harrison Facility :[facility] Start: 12-08-2024 End: 12-08-2024 Patient encounter procedure Indy Harrison COPIER OPERATOR-C -[facility] Work Phone: Start: 12-08-2024 End: 12-08-2024 Patient encounter status Indy Harrison COPIER OPERATOR-C [facility] Start: 12-08-2024 End: 12-08-2024 ambulatory Gema Elizalde COPIER OPERATOR-C Work Phone: -[facility] Start: 10-02-2023 Non-patient / Non-visit COPIER OPERATOR-C Gema Elizalde Work Phone: [facility] Start: 10-02-2023 End: 10-02-2023 Admission to same day surgery center COPIER OPERATOR-C Gema Elizalde Work Phone: [facility]-Surgical Day Care Start: 10-02-2023 End: 10-02-2023 ambulatory COPIER OPERATOR-C Gema Elizalde Work Phone: [facility] Work Phone: Start: 08-22-2023 End: 08-22-2023 ambulatory COPIER OPERATOR-C Gema Elizalde Work Phone: [facility] Work Phone: Start: 08-22-2023 End: 08-22-2023 Patient encounter procedure COPIER OPERATOR-Karla Elizalde Work Phone: [facility]-Laboratory, Specimen Work Phone: Start: 08-22-2023 End: 08-22-2023 Patient encounter procedure COPIER OPERATOR-Karla Elizalde Work Phone: [facility] Work Phone: Start: 07-30-2023 End: 07-30-2023 ambulatory [facility] Work Phone: Start: 07-30-2023 End: 07-30-2023 Patient encounter procedure [facility]-Cat Scan, [facility] Work Phone: Start: 05-15-2022 ambulatory Haylee Combs CNP [facility] Start: 05-15-2022 End: 05-21-2022 Office outpatient new 30 minutes Haylee Combs CNP Work Phone: [facility] Start: 05-15-2022 Review Haylee Combs CNP Work Phone: [facility] Start: 11-29-2021 End: 11-29-2021 Emergency department patient visit [facility]-Emergency Department Start: 11-27-2021 End: 11-27-2021 Patient encounter procedure [facility]-Outpatient Breast Imaging Start: 08-04-2019 End: 08-04-2019 Lab Order Claire Hernandez Work Phone: [facility] Start: 01-01-2019 End: 01-01-2019 Phone Encounter Claire Hernandez [facility] Start: 11-23-2018 End: 11-23-2018 Office outpatient new 30 minutes Claire Hernandez [facility] Start: 11-23-2018 End: 11-23-2018 Patient encounter status Haylee Combs CNP Work Phone: [facility] Start: 11-19-2018 End: 11-19-2018 Office outpatient visit 15 minutes Claire Hernandez [facility] Start: 06-07-2014 End: 06-07-2014 Office outpatient visit 15 minutes Claire Ramachandran [facility] Start: 01-18-2011 End: 01-18-2011 Patient encounter procedure Claire Ramachandran [facility] Start: 07-30-2010 End: 07-30-2010 Patient encounter procedure Claire Hernandez [facility] Start: 05-12-2009 End: 05-12-2009 Office outpatient visit 25 minutes Claire Hernandez [facility] Internal Medicine Start: 03-09-2009 End: 03-09-2009 Patient encounter procedure Claire Hernandez [facility] Start: 02-20-2007 End: 02-20-2007 Medical examinations/reports status Haylee Combs DIOGO Work Phone: [facility] Start: 02-20-2007 End: 02-20-2007 Patient encounter procedure Claire Hernandez [facility] Start: 02-18-2007 End: 02-18-2007 Historical Summary Claire Hernandez [facility] Start: 01-26-2007 End: 01-26-2007 Patient encounter procedure Claire Hernandez [facility] Start: 03-26-2006 End: 03-26-2006 Historical Summary Claire Hernandez [facility] End: 10-20-2008 Medical examinations/reports status Kaitlin Andujar [facility]; [facility] Work Phone: Patient encounter status Claire Hernandez Work Phone: [facility]; [facility] Work Phone: Patient encounter status Lisandra Amin MA [facility]; [facility] Work Phone: Procedures Date Procedure Procedure Detail Performing Clinician Start: 10-02-2023 Lap Robotic Umb/Ventral Hernia (Not Applicable) COPIER OPERATOR-C Gema Elizalde Work Phone: Start: 08-22-2023 Nasal Screen MRSA/MSSA COPIER OPERATOR-C Gema Elizalde Work Phone: Start: 07-30-2023 Computed tomography of abdomen and pelvis with contrast Start: 11-29-2021 End: 11-29-2021 Knee 4 or More Views Comments: See Note; NOTES: [facility] Imaging Services [address] [place] [address] Knee 4 or More Views MR#: [id number] Acct: [id number] Name: ANAYELI ESCOBEDO Rep #: [id number] : 1980 F 41 From: Collin Guerra MD PCP: BEN Alberto Status: REG ER Study: Knee 4 or More Views Date of Exam: 11/29/21 Exam# [id number] Ordering Dr: Aleksey Amor DO STUDY: RIGHT KNEE X-RAY SERIES OF 2156 HOURS ON 11/29/2021 REASON FOR EXAM: 41-year-old female with right knee pain. TECHNIQUE: 4 view(s) of the knee. COMPARISON: None. FINDINGS: There are no fractures or dislocations. The knee joint is balance. There are no arthritic or degenerative changes. The patella has normal appearance. The surrounding soft tissues are without abnormality. RAD/Knee 4 or More Views IMPRESSION: 1. Normal examination of the right knee. 2. No fractures or dislocations. 3. Balanced right knee joint. 4. No arthritic or degenerative changes. Electronically Signed: Collin Guerra MD at 22:26 EDT , CC: COPIER OPERATOR-Karla Hernandez; Dr. Aleksey Amor DO Aircraft Detail Draftsperson: Signed Claire Hernandez Work Phone: Start: 11-29-2021 Radiologic examination of knee Start: 11-29-2021 End: 11-29-2021 Emergency Department Summary Comments: See Note; NOTES: [facility] Medical Records Department [address] [place] [address] Emergency Department Summary 11/29/21 MR#: [id number] Acct: [id number] Name: ANAYELI ESCOBEDO Rep #: [id number] : 1980 41 From: Aleksey Amor DO PCP: Claire Hernandez NP-C Status:REG ER Location: ED HPI History of Present Illness Chief Complaint: Lower Extremity Injury Narrative Narrative: 41-year-old female presenting with pain in the right leg. She states he was kicked by her cow just below the level of the knee on the lateral aspect of the right leg. Patient states he is unable to ambulate secondary pain. She did not take anything for pain prior to arrival. Denies numbness or tingling. She is a superficial abrasion overlying the right lateral leg. She states that the pain radiates up into her knee. PFSH PFSH Home Medications norelgestromin 150 mcg-e.estradiol 35 mcg/24 hr weekly transderm patch (Xulane) 1 patch transdermal UD 11/29/21 [History Last Taken Unknown] Allergy/AdvReac Type Severity Reaction Status Date / Time No Known Allergies Allergy Verified 11/29/21 20:53 Social History Smoking Status: Never smoker ROS ROS ED Constitutional Constitutional ED: Denies chills or fever(s) Eyes Eyes: Denies change in vision or diplopia ENT ENT ED: Denies rhinorrhea or sore throat Cardiovascular Cardiovascular: Denies chest pain or palpitations Respiratory/Chest Respiratory/Chest: Denies cough or dyspnea Gastrointestinal Gastrointestinal: Denies abdominal pain or constipation Genitourinary Genitourinary ED: Denies dysuria Musculoskeletal Musculoskeletal: Reports other Details: Right leg pain ; Denies arthralgias or back pain Integumentary Reports Abrasions; Denies abscess Neurologic Neurologic: Denies headache(s) EXAM Physical Exam Const Vital Signs: 11/29/21 20:52 Temperature 97.8 F Temperature Source Temporal Pulse Rate 73 Respiratory Rate 16 Blood Pressure 138/89 H Blood Pressure Mean 105 Pulse Ox 100 Oxygen Delivery Method Room Air Positive well nourished General Appearance ED: NAD HEENT Reports moist mucous membranes normocephalic and atraumatic Resp normal respiratory effort Cardio regular rate and regular rhythm Extremity Extremity Narrative: Tenderness to palpation overlying the area of the fibular head. There is a superficial abrasion overlying this. compartments of the calf are soft. Right knee extensor mechanism intact. No knee effusion or ligamentous laxity. Sensation intact below the level of the injury. No obvious deformity of the leg. General Extremety ED: Yes weight-bearing difficulty General Extremity: weight-bearing difficulty Neuro oriented x3 and CN's II-XII intact bilaterally Sensorium / Orientation: alert Psych mental status grossly normal MDM MDM MDM Narrative Medical decision making narrative: Patient declines analgesia. Patient does have an ice pack. Right knee and right tib-fib ordered and on my interpretation there are no acute fractures. Patient reexamined and her compartments are still soft. Pedal pulses 2+. Skin pink and warm. Patient counseled to continue monitoring her lower extremity. If it becomes tense or she has color change in her legs or loses pulses to return to the ER. Patient to ice and elevate her leg. She does not want anything for pain so I counseled her to use Tylenol and ibuprofen in alternating doses. Patient given crutches prior to discharge. Impression: 1. lower extremity contusion Radiography Diagnostic Testing: Clinical Impression(s) from Imaging Studies Tibia/Fibula X-Ray 11/29/21 21:33 IMPRESSION: 1. Normal examination of the right tibia and fibula. 2. No fractures or dislocations. 3. No osseous lytic, sclerotic or mass lesions. 4. Normal-appearing adjacent right knee and right ankle joints. 5. Normal surrounding soft tissues. Electronically Signed: Collin Guerra MD at 22:29 EDT Reading Location ID and State: [facility] / MD Tel , Service support , Knee X-Ray 11/29/21 21:50 IMPRESSION: 1. Normal examination of the right knee. 2. No fractures or dislocations. 3. Balanced right knee joint. 4. No arthritic or degenerative changes. Electronically Signed: Collin Guerra MD at 22:26 EDT , Discharge Plan Triage Chief Complaint: Lower Extremity Injury ED Provider: Aleksey Amor Dx/Rx/DC Orders Instructions: ED Contusion, Lower Extremity Prescriptions: No Action Xulane 150-35 mcg/24 hr patch weekly 1 patch transdermal UD Label Comments: PLACE PATCH EACH WEEK FOR 3 WKS AND THEN REMOVE FOR 1 WK AND REPEAT Primary Care Provider: Claire Hernandez NP Referrals: Claire Hernandez NP, COPIER OPERATOR-C [Primary Care Provider] - Disposition Disposition: Home, Self Care What to do if you have Problems For any increased pain, shortness of breath, bleeding, nausea or vomiting, chest pain, or any unexpected problems, contact your Primary Care Provider. Call [facility] ([phone]) or report to the closest Emergency Room. Call 911 if necessary. 11/29/21 [id number] <Electronically signed by Aleksey Amor DO> Cosigner Signature (if applicable): CC: COPIER OPERATORRani Hernandez Signed Claire Hernandez Work Phone: Start: 11-29-2021 Plain X-ray of tibia and fibula Start: 11-29-2021 End: 11-29-2021 Tibia Fibula 2 Views Comments: See Note; NOTES: [facility] Imaging Services [address] [place] [address] Tibia Fibula 2 Views MR#: [id number] Acct: [id number] Name: ANAYELI ESCOBEDO Rep #: [id number] : 1980 F 41 From: Collin Guerra MD PCP: BEN Alberto Status: REG ER Study: Tibia Fibula 2 Views Date of Exam: 11/29/21 Exam# [id number] Ordering Dr: Aleksey Amor DO STUDY: RIGHT TIBIA AND FIBULA X-RAY SERIES OF 2206 HOURS ON 11/29/2021 REASON FOR EXAM: 41-year-old female with pain in the right tibia and fibular region. TECHNIQUE: 3 view(s) of the tibia and fibula were obtained. COMPARISON: None. FINDINGS: There is no evidence of fractures or dislocations of the adjacent joints. There is no evidence of arthritic or degenerative changes of the adjacent joints. No osseous lytic, sclerotic, or mass lesions are evident. The surrounding soft tissues are normal. RAD/Tibia Fibula 2 Views IMPRESSION: 1. Normal examination of the right tibia and fibula. 2. No fractures or dislocations. 3. No osseous lytic, sclerotic or mass lesions. 4. Normal-appearing adjacent right knee and right ankle joints. 5. Normal surrounding soft tissues. Electronically Signed: Collin Guerra MD at 22:29 EDT , CC: COPIER OPERATORHawaC Claire Hernandez; Dr. Aleksey Amor DO Aircraft Detail Draftsperson: Signed Claire Hernandez Work Phone: Start: 11-27-2021 Screening mammography Start: 11-27-2021 End: 11-27-2021 SCRN MAMM (CAD)W/LISA BILAT Comments: See Note; NOTES: [facility] Imaging Services [address] [place] [id number] SCRN MAMM (CAD)W/LISA BILAT MR#: [id number] Acct: [id number] Name: ANAYELI ESCOBEDO Rep #: [id number] : 1980 F 41 From: Shiva cabrera MD PCP: BEN Alberto Status: REG [facility] Study: SCRN MAMM (CAD)W/LISA BILAT Date of Exam: 11/01 01/21 Exam# [id number] Ordering Dr: Benjamín Osorio MD MAMMOGRAPHY - BILATERAL SCREENING REASON FOR EXAM: Female, 41 years old. Routine annual screening examination. PERTINENT HISTORY: Aunt with breast cancer. TECHNIQUE: Digital bilateral breast lisa (3D mammographic acquisition) in the CC and MLO projections. 2-D mediolateral oblique (MLO) and craniocaudad (CC) views of both breasts were obtained. CAD: Full Field Digital Mammography with Computer Added Detection was performed. COMPARISON: Comparison is made with prior study dated 11/23/2020 and 10/28/2019. FINDINGS: Breast Composition: The breasts are heterogeneously dense, which may obscure small masses. There are no dominant masses or suspicious calcifications. Stable 3.9 mm x 5 mm well-defined nodule in the upper-outer aspect of the left breast most likely represents a small intramammary lymph node. Stable small benign-appearing bilateral axillary lymph nodes. No other significant abnormalities are identified. BI/SCRN MAMM (CAD)W/LISA BILAT IMPRESSION: Stable bilateral screening mammogram. Yearly follow-up mammogram recommended. (A) ASSESSMENT CATEGORY: BIRADS Category 2: Benign. A letter regarding these results will be sent to the patient by the facility within 30 days. Approximately 10% of breast cancers are not detected by mammography. A normal mammogram should not delay biopsy of a clinically suspicious abnormality. [id number] Electronically Signed: Shiva Pereyra MD at 11:04 EDT , CC: BEN Hernandez; Dr. Benjamín Osorio MD Aircraft Detail Draftsperson: Signed Claire Hernandez Work Phone: Start: 11-23-2020 End: 11-24-2020 SCRN MAMM (CAD)W/LISA BILAT Comments: See Note; NOTES: [facility] Imaging Services [address] [place] [address] SCRN MAMM (CAD)W/LISA BILAT MR#: [id number] Acct: [id number] Name: ANAYELI ESCOBEDO Rep #: [id number] : 1980 F 40 From: Carlotta Funk MD PCP: BEN Alberto Status: [facility] CLI Study: SCRN MAMM (CAD)W/LISA BILAT Date of Exam: 11/01 09/20 Exam# [id number] Ordering Dr: Benjamín Osorio MD MAMMOGRAPHY - BILATERAL SCREENING 3-D TOMOSYNTHESIS REASON FOR EXAM: Female, 40 years old. SCREENING PERTINENT HISTORY: No significant family history. TECHNIQUE: 2-D mammograms and 3-D Tomosynthesis of the breast (s) were performed. CAD was performed. COMPARISON: 10/28/2019 FINDINGS: The breast composition is of heterogeneous fibroglandular tissue No dense spiculated masses or suspicious microcalcifications are identified. No architectural distortion is identified. There is no skin thickening or nipple retraction. There are benign-appearing small lymph nodes in the axillary areas bilaterally. There has been no significant change since the prior study since 10/28/2019 BI/SCRN MAMM (CAD)W/LISA BILAT IMPRESSION: No mammographic signs of malignancy. Routine yearly mammograms recommended. ASSESSMENT CATEGORY: BIRADS Category 1: Negative. A letter regarding these results will be sent to the patient by the facility within 30 days. FOLLOW UP RECOMMENDATION: Yearly follow up mammogram recommended. (A) Approximately 10% of breast cancers are not detected by mammography. A normal mammogram should not delay biopsy of a clinically suspicious abnormality. Electronically Signed: Carlotta Funk, at 12:45 EDT Tel , Service support , CC: BEN Hernandez; Dr. Benjamín Osorio MD Aircraft Detail Draftsperson: Signed Claire Hernandez Work Phone: Start: 11-04-2019 End: 11-04-2019 Breast Limited Unilateral Comments: See Note; NOTES: [facility] Imaging Services [address] [place] [address] Breast Limited Unilateral MR#: [id number] Acct: [id number] Name: ANAYELI ESCOBEDO Rep #: [id number] : 1980 F 39 From: Shiva cabrera MD PCP: BEN Alberto Status: REG CLI Study: Breast Limited Unilateral Date of Exam: Exam# [id number] Ordering Dr: Benjamín Osorio MD STUDY: ULTRASOUND BREAST - LEFT REASON FOR EXAM: Female, 39 years old. Abnormal screening mammogram. TECHNIQUE: Axial and longitudinal images of the LEFT breast were performed with a high resolution ultrasound transducer. # OF IMAGES: 35 COMPARISON: Comparison is made with prior mammogram dated October 28, 2019. FINDINGS: LEFT Breast: There is a 1.9 cm x 0.7 cm x 0 0.6 mL well-defined hypoechoic nodule with a central echogenic focus suggestive of a benign-appearing lymph node. This is at the 2:00 position of the breast at 8 cm from nipple. US/Breast Limited Unilateral IMPRESSION: The mammographic abnormality was possibly benign appearing lymph node at the 2:00 position of the breast at 8 cm from nipple. This measures 1.9 cm x 0.7 cm x 0.6 cm. ASSESSMENT CATEGORY: BIRADS Category 2: Benign. A letter regarding these results will be sent to the patient by the facility within 30 days. Electronically Signed: Shiva Pereyra, at 12:05 EDT , Service support , CC: BEN Hernandez; Dr. Benjamín Osorio MD Aircraft Detail Draftsperson: Signed Claire Hernandez Work Phone: Start: 10-28-2019 End: 10-29-2019 SCREEN MAMM (CAD) W/LISA BILAT Comments: See Note; NOTES: [facility] Imaging Services [address] [place] [address] SCREEN MAMM (CAD) W/LISA BILAT MR#: [id number] Acct: [id number] Name: ANAYELI ESCOBEDO Rep #: [id number] : 1980 F 39 From: Shiva cabrera MD PCP: Claire Hernandez, COPIER OPERATOR-C Status: [facility] Study: SCREEN MAMM (CAD) W/LISA BILAT Date of Exam: 0 10/28/19 Exam# [id number] Ordering Dr: Benjamín Osorio MD MAMMOGRAPHY - BILATERAL SCREENING REASON FOR EXAM: Female, 39 years old. Routine annual screening examination. PERTINENT HISTORY: Aunt with breast cancer. TECHNIQUE: Digital bilateral breast lisa (3D mammographic acquisition) in the CC and MLO projections. 2-D mediolateral oblique (MLO) and craniocaudad (CC) views of both breasts were obtained. CAD: Full Field Digital Mammography with Computer Added Detection was performed. COMPARISON: None. Baseline examination. FINDINGS: Breast Composition: The breasts are heterogeneously dense, which may obscure small masses. There are no dominant masses or suspicious calcifications. There is a 3.9 mm x 5 mm well-defined nodule in the upper lateral region of the left breast most likely representing a small lymph node. There is also evidence of a benign-appearing bilateral axillary lymph nodes. No other significant abnormalities are identified. BI/SCREEN MAMM (CAD) W/LISA BILAT IMPRESSION: 3.9 mm x 5 mm well-defined nodule in the upper outer quadrant of the left breast as described. Correlation with ultrasound is recommended. ASSESSMENT CATEGORY: BIRADS Category 0: Incomplete. Need additional imaging evaluation. A letter regarding these results will be sent to the patient by the facility within 30 days. Approximately 10% of breast cancers are not detected by mammography. A normal mammogram should not delay biopsy of a clinically suspicious abnormality. [id number] Electronically Signed: Shiva Pereyra, at 8:07 EDT , Service support , CC: COPIER OPERATORRani Hernandez; Dr. Benjamín Osorio MD Aircraft Detail Draftsperson: Signed Claire Hernandez Work Phone: Start: 11-23-2018 End: 11-23-2018 Foot min 3 Views Comments: See Note; NOTES: [facility] Imaging Services [address] [place] [address] Foot min 3 Views MR#: [id number] Acct: [id number] Name: ANAYELI ESCOBEDO Rep #: [id number] : 1980 F 38 From: Ania Valadez MD PCP: Claire Hernandez NP Status: REG CLI Study: Foot min 3 Views Date of Exam: 11/23/18 Exam# [id number] Ordering Dr: Claire Hernandez STUDY: X-RAY - LEFT FOOT CLINICAL: Female, 38 years old. Bilateral heel pain TECHNIQUE: 3 view(s) of the foot. COMPARISON: None. FINDINGS: There is a plantar spur. Normal visualized subtalar, talonavicular, calcaneocuboid, tarsal and tarsometatarsal articulations. Normal metatarsi. Normal metatarsophalangeal joint of the great toe. Normal tibial and fibular sesamoid bones. Normal interphalangeal joint of the great toe. Normal phalanges of the great toe. Normal second through fifth metatarsophalangeal joints. Normal interphalangeal joints and phalanges of the lesser toes. The soft tissue structures are unremarkable. RAD/Foot min 3 Views IMPRESSION: Plantar spur. No visualized acute fracture. Electronically Signed: Ania Valadez MD at 16:48 EDT Tel , Service support , CC: VENICE Hernandez Aircraft Detail Draftsperson: Signed Sola Ciesa Work Phone: Appendectomy Genna Leblanc Comment on above: 1992 Appendectomy Genna Leblanc Comment on above: 1992 H/O: surgery Genna [place] Comment on above: 1984 H/O: surgery Lisandra Amin MA Comment on above: 1984 History of appendectomy Genna Leblanc Comment on above: 1992 History of appendectomy Lisandra Amin MA Comment on above: 1992 Tonsillectomy Genna Coulte r Comment on above: 1984 Tonsillectomy Genna Coulte r Comment on above: 1984 Tubes in ears Genna Coulte r Comment on above: 1984 Tubes in ears Genna Coulte r Comment on above: 1984 Tubes in ears Lisandra Littlejohn Comment on above: 1984 Plan of Treatment Date Care Activity Detail Author Start: 10-02-2023 Patient discharge [facility] Start: 05-15-2022 Blood count complete auto&auto difrntl wbc CBC, PLATELETS & AUT DIFF (83435) [facility] Work Phone: Start: 05-15-2022 Comprehensive metabo lic panel METABOLIC PANEL, COMPREHENSIVE (06118) [facility]; [facility] Work Phone: Start: 05-15-2022 Lipid panel LIPID PANEL (15463) [facility]; [facility] Work Phone: Start: 05-15-2022 Procedure Education Eprescribe d prescriptions (G8553) [facility]; [facility] Work Phone: Start: 05-15-2022 Provider Instruction s for Treatment Follow up in 1 year or as needed [facility]; [facility] Work Phone: Start: 05-15-2022 Assay of thyroid stimulating hormone tsh TSH (THYROID STIMULATING HORMONE) (28781) [facility]; [facility] Work Phone: Start: 01-01-2019 Lipid panel Lipid Panel (40694) [facility] Work Phone: Start: 11-26-2018 Blood count complete automated CBC & PLATELETS (AUTO) (42882) [facility] Work Phone: Start: 11-26-2018 Thyrotropin Qn TSH (THYROID STIMULATING HORMONE) (88842) [facility] Work Phone: Start: 11-26-2018 Lipid panel LIPID PANEL (23169) [facility] Work Phone: Start: 11-26-2018 Comprehensive metabo lic panel Metabolic Panel, Comprehensive (68280) [facility] Work Phone: Start: 11-23-2018 Procedure Education Eprescribe d prescriptions (G8553) [facility] Work Phone: Start: 11-23-2018 Provider Instruction s for Treatment [facility] Work Phone: Start: 11-19-2018 Patient Education Strep Throat : sore throat [facility] Work Phone: Start: 11-19-2018 Procedure Education Eprescribe d prescriptions (G8553) [facility] Work Phone: Start: 11-19-2018 Provider Instruction s for Treatment Follow up if no improvement or if symptoms worsen [facility] Work Phone: Start: 11-19-2018 Iaadiadoo streptococ cus group a Rapid Strep Test, Office (95599) [facility]; [facility] Work Phone: Comment on above: Positive Start: 11-19-2018 S. pyogenes Ag IA Ql (Unsp spec) Rapid Strep Test, Office (70580) [facility] Work Phone: Comment on above: Positive Start: 11-19-2018 Throat culture THROAT CULTURE (58375 ) [facility] Work Phone: Start: 07-30-2010 Provider Instruction s for Treatment *Antibiotic Usage Education - Female [facility] Work Phone: Start: 07-30-2010 Cul bact xcpt urine blood/stool aerobic isol JOLENE CULTURE-OTHER (56689) [facility] Work Phone: Start: 07-30-2010 Culture bacterial an y source anaerobic iso&id BACT CULTURE ANY-ANAEROBIC (91978) [facility] Work Phone: Start: 03-09-2009 Provider Instruction s for Treatment [facility] Work Phone: Start: 03-09-2009 Iaadiadoo streptococ cus group a Rapid Strep Test, Office (27156) [facility]; [facility] Work Phone: Comment on above: positive Start: 03-09-2009 S. pyogenes Ag IA Ql (Unsp spec) Rapid Strep Test, Office (39646) [facility] Work Phone: Comment on above: positive Start: 02-20-2007 Provider Instruction s for Treatment [facility] Work Phone: Start: 02-20-2007 Cytp cerv/vag auto t hin layer prep mnl screen Thin prep Pap (69050) [facility] Work Phone: Start: 01-26-2007 Provider Instruction s for Treatment Poison Georgina Education [facility] Work Phone: MG Breast - bilatera l Screening [facility] Patient Education ED Contusion, Lower Extremity [facility] Work Phone: Patient referral [facility] Work Phone: [facility] Work Phone: [facility] Work Phone: [facility] Work Phone: [facility] Work Phone: Payers Date Payer Category Payer Self-pay [id number] Private Health Insurance [id number] 2021 Private Health Insurance [id number] 2014 Private Health Insurance [id number] 2014 Unknown [id number] 2008 Private Health Insurance [id number] 1980 Unknown [id number] Unknown [employer] Insurance Unknown [id number] Unknown [id number] Unknown [id number] Social History Date Type Detail Facility Caffeine Use [facility] Work Phone: Comment on above: 1 can pop qd 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, 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[employer] , Lives with spouse Start: 11-29-2021 End: 09-18-2023 Tobacco smoking status NHIS Unknown if ever smoked [facility] Start: 1980 Sex Assigned At Female [facility] Start: 11-26-2023 Tobacco smoking status NHIS Never smoked tobacco (finding) [facility] NEGATED: Highlighted row [facility] Medical Equipment Procedure Code Equipment Code Equipment Origin al Text Equipment Identifier Dates 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,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 [id number] FDA Start: 10-02-2023 Goals Date Patient Goal Desired Activity /State Functional Status Date Assessment Result Facility 10-02-2023 Functional status Ambulates;Bathroom Priv ilege [facility] Work Phone: Mental Status Date Assessment Result Facility 10-02-2023 Cognitive function Level Of Cons ciousness Appropriate;Drowsy [facility] Work Phone: 10-02-2023 Cognitive function Voice/Name [facility] Work Phone: Clinical Notes 10-02-2023 to 12-08-2024 Note Date & Type Note Facility 12-08-2024 Progress note [facility] 10-02-[address] [facility] 10-02-2023 History and physi sharmila note Note Date/Time October 02, 2023 11:26am [facility] Medical Records Department [address] [place] [address] History & Physical Exam 10/02/23 1125 MR#: [id number] Acct: [id number] Name: ANAYELI ESCOBEDO Rep #:[id number] : 1980 42 From: Joaquin Plummer PCP: MARIAELENA MendozaC Status:[facility] Location: [place] [address] History and Physical Date of Admission: 10/02/23 Date of Service: 08/22/23 MR#: [id number] Acct: [id number] Name: ANAYELI ESCOBEDO Rep #: [id number] : 1980 Provider: Dr. Joaquin Rowe MD Age/Sex: 42/F Location: [facility] Status: Signed Intake Vital Signs 11/30/2219:52 08/22/2407:09 Height 5 ft 7 in 5 ft 7 in Weight: 203 lb 4 oz BMI 31.8 BP 127/83 H Blood Pressure Location Rt brachial Position Sitting Respiration 18 Pulse 80 Pulse Source Monitor Temp 97.6 F L Temp Source Temporal Pulse Oximetry (%) 99 Oxygen Delivery Method room air Intake Visit Reasons: Hernia Chief Complaint: hernia Sample Display Preparer Required: No Is patient in pain?: No Allergies No Known Allergies Allergy (Verified 08/22/23 08:10) Medications norelgestromin 150 mcg-e.estradiol 35 mcg/24 hr weekly transderm patch (Xulane) 1 patch transdermal UD 11/29/21 [History Confirmed 08/22/23] PFSH Surgical History (Updated 08/22/23 @ 08:08 by Nini Fu LPN) S/P appendectomy S/P myringotomy with insertion of tube S/P tonsillectomy Family History (Updated 08/22/23 @ 08:09 by Nini Fu LPN) Grandmother Diabetes Social History (Updated 08/22/23 @ 08:09 by Nini Fu LPN) Smoking Status: Never smoker alcohol intake: never substance use type: does not use HPI HPI HPI: Patient is a 42-year-old female who presents for a newly diagnosed umbilical hernia. Patient is referred from Mrs. Gema Elizalde NP and Mrs. Haylee Combs NP. This finding was first noticed by patient approximately 6 to 7 months ago. 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 She has noticed both some growth of this hernia as well as some pain off and on. She finds that it becomes painful and firm to the touch but has never changed colors. She also confirms that her bowels have been unaffected. She suggest that a twin several years ago is likely to blame for the attenuated condition of her abdominal wall. Patient has no personal history of smoking. Patient has no personal history of recurrent cutaneous infections including staph. Pertinent surgical history includes: Remote lap appendectomy ROS General General: No weight change, appetite, fatigue, colon cancer, breast cancer or weakness HEENT HEENT: No difficulty swallowing, eye injury, eye surgery, swollen glands or hoarseness Endo Endocrine: No thyroid disease, diabetes mellitus, thyroid cancer, Hair loss, heat intolerance or cold intolerance Skin Skin: No rash or changing moles Musc Musculoskeletal: No back problems, arthritis, rheumatoid arthritis, gout or joint pain Cardio Cardiovascular: No murmur, pacemaker, heart disease, atrial fibrillation, high blood pressure, heart attack, heart stent, palpitations, shortness of breat withexertion or chest pain Psych Psychiatric: No depression, anxiety or hearing voices Resp Respiratory: No shortness of breath, No sleep apnea, No cough, No COPD, No asthma, No emphysema and No wheezing Gastro Gastrointestinal: No abdominal pain, No nausea or vomiting, No diarrhea, No constipation, No blood in stool, No acid reflux, No hemorrhoids, No ulcers, No gallbladder problem and No black,tarry stools Romulo Hematologic: No blood thinners, No blood disorders, No bleeding, No anemia and No blood clots Neuro Neurologic: No numbness, No tingling and No weakness Exam Const General: cooperative Nutritional Appearance: obese Orientation: alert, awake and oriented x3 Other: Pleasant Resp Effort & Inspection: normal respiratory effort GI Other: Obese, abdominal striae present with significant laxity of the abdominal wall, 2.5 cm umbilical hernia defect that is freely reducible to the peritoneum. Is nontender to palpation. Does not appear to be any hernia contents at this time. Patient denies any other tenderness with palpation of the 4 abdominal quadrants. Assessment and Plan Assessment and Plan (1) Umbilical hernia: Status: Acute Comment: Patient is a 42-year-old female, otherwise healthy, who presents with newly diagnosed umbilical hernia that she has appreciated both growing in size and discomfort. It is freely reducible on exam. I shared patient's CT imaging withher and find this to measure 2.5 cm at the hernia neck, however, the surroundingtissue is quite attenuated. Based on patient's active lifestyle and the qualityof the tissue I find here I recommend repair with significant mesh underlay. Toachieve this objective I recommend robot-assisted umbilical hernia repair with mesh placement. Procedure was described in detail and patient states that this is agreeable to her. I have informed her that we would be looking for activity restriction of no lifting greater than 10 pounds for 5 weeks postoperatively. She states that she has a commitment at the end of August but would like to target the early part of September for surgery. Today we will plan to obtain a screening for MRSA with a swab of her naris. Plan: ? MRSA swab ? Tentatively plan for robot-assisted umbilical hernia repair with mesh early September. Procedure to be done with outpatient disposition. Orders: I have examined the patient and the H&P has been reviewed. There are no clinicalchanges since date of exam. She also denies any questions, however, given the duration since her last visit I took the opportunity to perform a high level review of both the procedure and the post procedure expectations?including a review of her activity restrictions postop. She and her confirmed understanding. Will now proceed to the operating room for robot-assisted umbilical hernia repair with mesh. 10/02/23 1126 <Electronically signed by Joaquin Rowe MD> Cosigner Signature (if applicable): CC: BEN Elizalde; Dr. Joaquin Rowe MD~ Signed [facility] Work Phone: Evaluation noteNo assessment information available [facility] Work Phone: Evaluation note* Diagnosis Onset Date Resolution Status Umbilical hernia acute [facility] Work Phone: Evaluation note* Diagnosis Onset Date Resolution Status Admit Date Encounter for routine gynecological examination noneactive December 082024 10:18am [facility] Work Phone: Instructions* Name Dates Details How to access Corthera Indication:BMI 28.0-28.9,adult Start:23-Nov-2018 Instruction Type:Patient Education How to access Hua Kang online - Detail Indication:BMI 28.0-28.9,adult Start:23-Nov-2018 Instruction Type:Patient Education Patient Instructions Indication:BMI 28.0-28.9,adult Start:23-Nov-2018 Instruction Type:Provider Instructions for Treatment How to access health informa tion online Indication:BMI 28.0-28.9,adult Start:19-Nov-2018 Instruction Type:Patient Education How to access health informa tion online - Detail Indication:BMI 28.0-28.9,adult Start:19-Nov-2018 Instruction Type:Patient Education Patient Instructions Indication:Sore throat Start:19-Nov-2018 Instruction Type:Provider Instructions for Treatment [facility]; [facility] Work Phone: instructions* Name Dates Details How to Access Health Informa tion Online using Patient Portal and [email or web address] Apps Indication:Non-smoker Start:15-May-2022 Instruction Type:Patient Education Patient Instructions Indication:Non-smoker Start:15-May-2022 Instruction Type:Provider Instructions for Treatment How to access health informa tion online Indication:BMI 28.0-28.9,adult Start:23-Nov-2018 Instruction Type:Patient Education How to access health informa tion online - Detail Indication:BMI 28.0-28.9,adult Start:23-Nov-2018 Instruction Type:Patient Education Patient Instructions Indication:BMI 28.0-28.9,adult Start:23-Nov-2018 Instruction Type:Provider Instructions for Treatment How to access health informa tion online Indication:BMI 28.0-28.9,adult Start:19-Nov-2018 Instruction Type:Patient Education How to access health informa tion online - Detail Indication:BMI 28.0-28.9,adult Start:19-Nov-2018 Instruction Type:Patient Education Patient Instructions Indication:Sore throat Start:19-Nov-2018 Instruction Type:Provider Instructions for Treatment [facility]; [facility] Work Phone: instructions* Name Dates Details How to Access Health Informa tion Online using Patient Portal and [email or web address] Apps Indication:Non-smoker Start:15-May-2022 Instruction Type:Patient Education Patient Instructions Indication:Non-smoker Start:15-May-2022 Instruction Type:Provider Instructions for Treatment How to access health informa tion online Indication:BMI 28.0-28.9,adult Start:23-Nov-2018 Instruction Type:Patient Education How to access health informa tion online - Detail Indication:BMI 28.0-28.9,adult Start:23-Nov-2018 Instruction Type:Patient Education Patient Instructions Indication:BMI 28.0-28.9,adult Start:23-Nov-2018 Instruction Type:Provider Instructions for Treatment How to access health informa tion online Indication:BMI 28.0-28.9,adult Start:19-Nov-2018 Instruction Type:Patient Education How to access health informa tion online - Detail Indication:BMI 28.0-28.9,adult Start:19-Nov-2018 Instruction Type:Patient Education Patient Instructions Indication:Sore throat Start:19-Nov-2018 Instruction Type:Provider Instructions for Treatment [facility]; [facility] Work Phone: progress note Author Indy Harrison [facility] Note Date/Time December 08, 2024 10:42 am [facility] [address], [address] [place] [address] OFFICE VISIT Date of Service: 12/08/24 MR#: [id number] Acct: [id number] Name: ANAYELI ESCOBEDO Rep #: [id number] : 1980 Provider: BEN Harrison Age/Sex: 44/F [place] [facility]: Signed Intake Vital Signs 11/26/23 14:43 12/08/24 10:21 Height 5 ft 7 in 5 ft 7 in Weight: 200 lb BMI 31.3 BP 136/84 H 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 Display 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 Required: No Is patient in pain?: No Allergies No Known Allergies Allergy (Verified 12/08/24 10:23) Medications ?Medication ?Instructions ?Recorded ?Confirmed ?Type multivitamin with minerals-folic 1 tab PO DAILY 12/08/24 History acid 200 mcg chewable tablet (Womens Daily Gummies) norelgestromin 150 mcg-e.estradiol 1 patch transdermal EVANS #9 ea 12/08/24 12/08/24 Rx 35 mcg/24 hr weekly transderm patch (Xulane) Is last menstrual period known: No Post menopausal: No Patient : No : No Control Method: xulane patch [facility] Medical History Wears glasses Wears contact lenses Non-smoker Surgical History Hx of umbilical hernia repair History of S/P myringotomy with insertion of tube S/P appendectomy S/P tonsillectomy Family History Grandmother Diabetes Social History number of children: 2 current occupational status: employed current occupation: [employer] pets and animals: Yes Smoking Status: Never smoker alcohol intake: never substance use type: does not use caffeine: Yes eating out: rarely or never during the past year weight has: remained stable seatbelt use: always do you feel safe at home: Yes History 1 Elective abortions Hx Para 0 Spontaneous abortions Hx # Term Pregnancies 1 Ectopic pregnancies Hx # Pregnancies Multiple births 1 # of living children 2 HPI Encounter for routine gynecological examination Details: ANAYELI ESCBOEDO is a 44 year old who presents for annual exam. She reports no issues or concerns today. Continues with xulane patch; has spotting during her normal cycle days. Continues to use patch compliantly and happy with this. Last PAP: 2023; normal. HPV neg History of abnormal PAP: no Last mammogram: 2023; normal History of abnormal mammogram: no Colon cancer screening: age 44 Other preventative health care screenings: Gema Elizalde; PCP Female Reproductive History Last Menstrual Period: 11/01/24 Bleeding Duration: 1 Questions: metorrhagia: No, sexually active: Yes, dyspareunia: No and PCB: No ROS Const Constitutional: Denies chills, fatigue, fever(s), headache(s) or weight loss Eyes Eyes: Denies change in vision ENT ENT: Denies dizziness Resp Resp: Denies cough GI GI: Denies abdominal pain, constipation or nausea : Denies difficulty voiding, dysuria, hematuria, nipple discharge, pelvic pain, prolapse symptoms, urinary incontinence, vaginal discharge, vaginal dryness, vaginal odor or vaginal pruritus Skin Skin/Breast: Denies alopecia, rash, breast mass, breast pain, breast skin changes or nipple discharge Neuro Neuro: Denies dizziness Psych Psych: Denies anxiety or depression Endo Endo: Denies cold intolerance, excessive sweating or heat intolerance Exam Const General: cooperative, healthy appearing, comfortable, no acute distress, well groomed and well hydrated Nutritional Appearance: well nourished Orientation: alert, awake and oriented x3 HENMT Head: normal to inspection and normocephalic Ears: hearing grossly normal bilaterally and external ears normal Nose: external nose normal Face and sinus: normal facial exam Eyes General: appearance normal, both eyes and all related structures Neck Neck: normal visual inspection, full ROM and no lymphadenopathy Thyroid: thyroid normal Chest Chest palpation & inspection: normal inspection of the chest Breast inspection: normal inspection of the breasts and normal inspection of theaxillae Breast palpation: normal palpation of the breasts, normal palpation of the axillae and no axillary lymphadenopathy Resp Effort & Inspection: normal respiratory effort, able to speak in complete sentences and symmetric chest movement GI Inspection: normal to inspection Palpation: soft and no hepatosplenomegaly General: bladder normal to palpation External Female Exam: normal external appearance and normal appearance of the urethra Urethra: normal appearance of the urethra Speculum Exam - Vagina: normal appearance of the vagina, normal vaginal discharge, no lesions and nontender Speculum Exam - Cervix: normal appearance of the cervix, no lesions and no masses Bimanual Exam- Vagina & Uterus: normal bimanual exam, uterine size normal, bladder normal to palpation, normal palpation and non-tender Bimanual Exam- Adnexa, other: normal adnexae, no masses, normal and non-tender Pelvic Support: normal Skin General: no rashes or lesions noted Neuro General: patient alert, patient awake, patient oriented x3 and moves all extremities Psych Appearance: grossly normal Mental Status: mental status grossly normal Affect: normal affect Speech and Movement: speech and movement normal Attitude: cooperative Coding Level of Care Code Established Pt Off vis,est,prev 40-64yrs Patient Type Established Diagnoses Encounter for routine gynecological examination Z01.419 Assessment and Plan Assessment and Plan (1) Encounter for routine gynecological examination: Plan: Breast and pelvic exam complete. PAP due: UTD Mammogram due: orders placed to obtained; scheduled next. Advised self breast exams monthly. Contraception: Xulane Advised incorporating healthy dietary choices such as increase in lean meats, fruits/vegetables, less processed food/sat fat/trans fats. Increase exercise to 30 minutes per day/5 days a week. This can include both weight bearing exercisesand/or brisk walking. Follow up with PCP for further preventative health screenings. Follow up 1 year for repeat annual intelligence chief exam. Call office sooner with questions or concerns. Orders: Orders [facility] MAMM (CAD)Ruma/LISA FACUNDO 06/18/24 Z12.31 - Encounter for screening mammogramfor malignant neoplasm of breast Medications: Refilled norelgestromin-ethin.estradiol 150-35 mcg/24 hr (Xulane) 1 patch transdermal SU9 ea 3RF 12/08/24 1043 <Electronically signed by Indy CONTRERAS> Date _ Indy CONTRERAS Cosigner Signature: Date (if applicable) CC: ~ [facility] Work Phone: Reason for referral (narrative)No reason for referral information [facility]Bl[facility] Work Phone: Instructions Name Dates Details How to access health informa tion online Indication:BMI 28.0-28.9,adult Start:19-Nov-2018 Instruction Type:Patient Education How to access health informa tion online - Detail Indication:BMI 28.0-28.9,adult Start:19-Nov-2018 Instruction Type:Patient Education Patient Instructions Indication:Sore throat Start:19-Nov-2018 Instruction Type:Provider Instructions for Treatment Name Dates Details How to access health informa tion online Indication:BMI 28.0-28.9,adult Start:23-Nov-2018 Instruction Type:Patient Education How to access health informa tion online - Detail Indication:BMI 28.0-28.9,adult Start:23-Nov-2018 Instruction Type:Patient Education Patient Instructions Indication:BMI 28.0-28.9,adult Start:23-Nov-2018 Instruction Type:Provider Instructions for Treatment How to access health informa tion online Indication:BMI 28.0-28.9,adult Start:19-Nov-2018 Instruction Type:Patient Education How to access health informa tion online - Detail Indication:BMI 28.0-28.9,adult Start:19-Nov-2018 Instruction Type:Patient Education Patient Instructions Indication:Sore throat Start:19-Nov-2018 Instruction Type:Provider Instructions for Treatment Name Dates Details How to access health informa tion online Indication:BMI 28.0-28.9,adult Start:23-Nov-2018 Instruction Type:Patient Education How to access health informa tion online - Detail Indication:BMI 28.0-28.9,adult Start:23-Nov-2018 Instruction Type:Patient Education Patient Instructions Indication:BMI 28.0-28.9,adult Start:23-Nov-2018 Instruction Type:Provider Instructions for Treatment How to access health informa tion online Indication:BMI 28.0-28.9,adult Start:19-Nov-2018 Instruction Type:Patient Education How to access health informa tion online - Detail Indication:BMI 28.0-28.9,adult Start:19-Nov-2018 Instruction Type:Patient Education Patient Instructions Indication:Sore throat Start:19-Nov-2018 Instruction Type:Provider Instructions for Treatment Name Dates Details How to access health informa tion online Indication:BMI 28.0-28.9,adult Start:23-Nov-2018 Instruction Type:Patient Education How to access health informa tion online - Detail Indication:BMI 28.0-28.9,adult Start:23-Nov-2018 Instruction Type:Patient Education Patient Instructions Indication:BMI 28.0-28.9,adult Start:23-Nov-2018 Instruction Type:Provider Instructions for Treatment How to access health informa tion online Indication:BMI 28.0-28.9,adult Start:19-Nov-2018 Instruction Type:Patient Education How to access health informa tion online - Detail Indication:BMI 28.0-28.9,adult Start:19-Nov-2018 Instruction Type:Patient Education Patient Instructions Indication:Sore throat Start:19-Nov-2018 Instruction Type:Provider Instructions for Treatment Name Dates Details How to access health informa tion online Indication:BMI 28.0-28.9,adult Start:23-Nov-2018 Instruction Type:Patient Education How to access health informa tion online - Detail Indication:BMI 28.0-28.9,adult Start:23-Nov-2018 Instruction Type:Patient Education Patient Instructions Indication:BMI 28.0-28.9,adult Start:23-Nov-2018 Instruction Type:Provider Instructions for Treatment How to access health informa tion online Indication:BMI 28.0-28.9,adult Start:19-Nov-2018 Instruction Type:Patient Education How to access health informa tion online - Detail Indication:BMI 28.0-28.9,adult Start:19-Nov-2018 Instruction Type:Patient Education Patient Instructions Indication:Sore throat Start:19-Nov-2018 Instruction Type:Provider Instructions for Treatment Chief Complaint and Reason for Visit Chief Complaint SCREENING LEG INJURY Chief Complaint ABDOMINDAL PAIN Chief Complaint ABDOMINDAL PAIN Hernia Reason for Visit Umbilical hernia Chief Complaint ABDOMINDAL PAIN Hernia Lap Robotic Umbilical hernia w/mesh Lap Robotic Umbilical hernia w/mesh Reason for Visit Umbilical hernia Chief Complaint Admit Date Annual (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) December 08, 2024 10:18 am Reason for Visit Admit Date Encounter for routine gynecological exam ination December 08, 2024 10:18am Advance Directives No Advanced Directives Records Found Advance Directive Response Recorded Date/ Time Living Will No November 29, 2021 8:51pm Power of Director Market Research No November 29 8:51pm Advance Directive Response Recorded Date/ Time Living Will No November 29, 2021 7:51pm Power of Director Market Research No November 29 7:51pm Advance Directive Response Recorded Date/ Time Name of Medical Power of Director Market Research SPOUSE September 18, 2023 1:05pm Living Will Yes September 18, 2023 1:05pm Power of Director Market Research Yes September 17 1:05pm Summary Purpose Family History No Family History Records Found Additional Source Comments Goals (unrecognized section and content) Goals may be documented in a n alternate sectionGoals may be documented in an alternate sectionGoals may be documented in an alternate sectionGoals may be documented in an alternate sectionGoals may be documented in an alternate section INFORMATION SOURCE (unrecogn ized section and content) DATE CREATED AUTHOR 05/22/2022 [facility] DATE CREATED AUTHOR 'S EDGAR FALCON 12/12/2024 [facility] Care Teams (unrecognized sec tion and content) Team Status: Active Member Role Status Dates BEN Mendoza Primary Care Provider Active Team Status: Inactive Member Role Status Dates Gema Tonio , COPIER OPERATOR-C Primary Care Provider Active BEN Cortez Attending Provider, Referring Pr belgica Active Team Status: Inactive Member Role Status Dates Gema Elizalde , COPIER OPERATOR-C Primary Care Provider, Referring P robautista Active Dr. Joaquin Rowe MD Attending Provider Active Team Status: Inactive Member Role Status Dates Gema Elizalde , COPIER OPERATOR-C Primary Care Provider Active Dr. Joaquin Rowe MD Attending Provider, Referring P rotrevader Active Team Status: Active Member Role Status Dates Gema Elizalde , COPIER OPERATOR-C Primary Care Provider Active Dr. Joaquin Rowe MD Attending Provide r, Referring Provider, Other Provider Active Team Status: Active Member Role/Relationship Status Dates Gema Elizalde , COPIER OPERATOR-C Primary Care Provider Active Team Status: Inactive Member Role/Relationship Status Dates Gema Elizalde COPIER OPERATOR-C Primary Care Provider Active Start: December 08, 2024 End: December 08, 2024 Gema Elizalde NP-C Referring Provider Active St art: December 08, 2024 End: December 08, 2024 BEN Hurst Attending Provider Active Start: December 08, 2024 End: December 08, 2024 FOR RECORDS PERTAINING TO PATIENTS WHO ARE OR HAVE BEEN ENROLLED IN A CHEMICAL DEPENDENCY/SUBSTANCEABUSE PROGRAM, SOME INFORMATION MAY BE OMITTED. This clinical summary was aggregated from multiple sources. Caution should be exercised in using it in the provision of clinical care. This summary normalizes information from multiple sources, and as a consequence, information in this document may materially change the coding, format and clinical context of patient data. In addition, data may be omitted in some cases. CLINICAL DECISIONS SHOULD BE BASED ON THE PRIMARY CLINICAL RECORDS. [facility] [employer] provides no warranty or guarantee of the accuracy or completeness of information in this document.
== END | disposition home or self-care (01) ==
LOC: OPBI 11:59
PROVIDERS: PCP Nurse Practitioner Family; Referring Provider Nurse Practitioner Family; Visit Provider Nurse Practitioner Family
DX: Z12.31 Encounter for screening mammogram for malignant neoplasm of breast (principal)
CPT/HCPCS: 77063; 77067